=== PATIENT | female | born 1935 | race Caucasian/White ===

== ENCOUNTER → 2017-03-13 | Outpatient (CLI) | payer MEDICARE ==
--- NOTE | 2017-03-13 11:46 | BD ---
EXAMINATION TYPE: MG DEXA axial skeleton. DATE OF EXAM: 03/13/2017 COMPARISON: Prior DEXA bone scan February 09, 2015. CLINICAL HISTORY: Postmenopausal female with osteopenia per order Height: 5 FT 2 IN Weight: 178 FRAX RISK QUESTIONS: Alcohol (3 or more units per day): NO Family History (Parent hip fracture): NO Glucocorticoids (More than 3mos): NO (Ex: prednisone, prednisolone, methylprednisolone, dexamethasone, and hydrocortisone). History of Fracture in Adulthood: NO Secondary Osteoporosis: 1. Type 1 Diabetes: NO 2. Hyperthyroidism: NO 3. Menopause before 45: YES 4. Malnutrition: NO 5. Chronic liver disease: NO Rheumatoid Arthritis: NO Current Tobacco Use: NO RISK FACTORS HISTORY OF: Active: YES Postmenopausal woman: AGE 45 Lost more than 2 inches in height since high school: YES MEDICATIONS: Additional Medications: VAGINAL ESTROGEN,GEMFIBROZIL, PROPRANOLOL, OXPRENOLOL, LYRICA, PRIMIDONE, XYZ AL,LOVASTATIN, XANAX, ULTRAM, FLONASE,PROBIOTIC, VIT D, METHENAMINE Additional History: EXAM MEASUREMENTS: Bone mineral densitometry was performed using the [employer] System. Bone mineral density as measured about the Lumbar spine is: ----- L1-L4(G/cm2): 1.293 T Score Values are as follows: ----- L2: 0.4 ----- L3: 1.0 ----- L4: 2.6 ----- L1-L4: 0.9 Bone mineral density has: Increased 8.3% since study of: 2014 Bone mineral density about the R hip (g/cm2): 0.844 Bone mineral density about the L hip (g/cm2): 0.770 T Score values are as follows: -----R Neck: -1.4 -----L Neck: -1.9 -----R Total: -0.5 -----L Total: -1.1 Bone mineral density has: Decreased -2.6% since study of: 2014 IMPRESSION: Osteopenia (T Score between -2.5 and -1 as noted by T score values remains present in bilateral hips. There remains slightly increased risk of fracture and the patient may be considered for treatment. Re-Screen 2-5 years. NOTE: T-SCORE=SD OF THE YOUNG ADULT MEAN.
--- NOTE | 2017-03-14 08:23 | MM ---
Reason for exam: screening (asymptomatic). Last mammogram was performed 1 year and 1 month ago. History: Patient is postmenopausal. Stereotactic core biopsy of the left breast, 2005. Benign stereotactic core biopsy of the left breast, April 24, 2004. Core biopsy of the left breast. Excisional biopsy of the left breast. Taking tamoxifen for 4 years 5 months beginning at age 66. Physical Findings: A clinical breast exam by your physician is recommended on an annual basis and results should be correlated with mammographic findings. MG 3D Screening Mammo W/Cad Bilateral CC and MLO view(s) were taken. Prior study comparison: February 15, 2016, bilateral MG screening mammo w CAD. February 09, 2015, bilateral MG screening mammo w CAD. The breast tissue is almost entirely fat. Previous ultrasound biopsy in the left breast. No significant changes when compared with prior studies. ASSESSMENT: Benign, BI-RAD 2 RECOMMENDATION: Routine screening mammogram of both breasts in 1 year.
== END | disposition home or self-care (01) ==
LOC: RADMAMWWP 08:43
PROVIDERS: ATTEND Obstetrics & Gynecology
DX: Z12.31 Encounter for screening mammogram for malignant neoplasm of breast (principal); M85.88 Other specified disorders of bone density and structure, other site
CPT/HCPCS: 77080; 77063; G0202

== ENCOUNTER → 2017-03-19 | Outpatient (CLI) | payer MEDICARE ==
[2017-03-19 11:03] LABS: Blood Urea Nitrogen 17 mg/dL (7-17); Non-African American GFR(MDRD) >60 (>60 ml/min/1.73 sqM)
== END | disposition home or self-care (01) ==
LOC: LABWHC1 09:45
PROVIDERS: ATTEND Nurse Practitioner
DX: M51.9 Unspecified thoracic, thoracolumbar and lumbosacral intervertebral disc disorder (principal)
CPT/HCPCS: 36415; 82565; 84520

== ENCOUNTER → 2017-03-21 | Outpatient (CLI) | payer MEDICARE ==
--- NOTE | 2017-03-22 08:17 | MR ---
EXAMINATION TYPE: MR lumbar spine wo/w con DATE OF EXAM: 03/21/2017 COMPARISON: Prior MRI lumbar spine October 02, 2010 HISTORY: Degenerative disc disease (M 61.9) per order. Low back pain on and off for 4 to 5 months wit h pain going into bilateral legs per patient. TECHNIQUE: Multiplanar, multisequence images of the lumbar spine is performed without and with IV contrast, util izing 15 mL intravenous MultiHance FINDINGS: Sagittal images of the lumbar spine show vertebral body heights to remain satisfactory. Mul tilevel endplate irregularities or Schmorl nodes centered at L2-L3 and L4-L5 disc spaces are present There is persistent grade 2 anterolisthesis of L4 on L5 measured 11 mm on sagittal image 9 from poste rior vertebral body margin. Multilevel disc desiccation is redemonstrated. There is persistent advanc ed disc space narrowing L2-L3, L4-L5, and L5-S1 levels.. The conus medullaris remains low in positio n ending at inferior L2 level. No abnormal signal is seen. No significant change from prior is noted. Heterogeneous endplate changes are present to lower lumbar levels. No suspicious postcontrast enhanc ement is seen. Mild to moderate multilevel anterior spurring is noted. Axial images at the T12-L1 level shows new mild broad disc bulge mildly effacing anterior thecal sac on axial image 34, bilateral neural foramina remain patent. Mild facet degenerative changes bilateral ly are redemonstrated. Axial images at L1-L2 level redemonstrate mild facet degenerative changes bilaterally otherwise are f elt within normal limits. No significant change from prior. Axial images at the L2-L3 level show mild to moderate facet degenerative changes and ligamentum flavu m hypertrophy with some effacement the posterior lateral thecal sac. There is more moderate broad dis c bulge and posterior spurring effacing anterior thecal sac on axial image 23. Spur disc complexes ar e causing moderate right and mild left-sided neural foraminal narrowing. No significant change from p rior study is seen. Axial images at the L3-L4 level show moderate facet degenerative changes and ligament flavum hypertro phy effacing posterior lateral thecal sac on axial image 16. There is moderate to severe broad disc b ulge effacing anterior thecal sac. Significant progression from prior study is seen. There is severe left and moderate right-sided neural foraminal narrowing at this level identified on current study. E ncroachment left L3 nerve is felt present seen best on sagittal image 4. Axial images at L4-L5 level with spondylolisthesis with pseudodisc herniation. There is advanced face t arthropathy bilaterally. Spinal canal stenosis is present. There is advanced bilateral neural vazquez inal narrowing redemonstrated with encroachment on both L4 nerve suspected. Axial images at L5-S1 level show moderate facet degenerative changes bilaterally. There is prominent broad-based central disc protrusion on axial image 5. Spinal canal is minimally effaced anteriorly. T here is moderate to severe right-sided neural foraminal narrowing and moderate left-sided neural fora cathy narrowing. Encroachment on right L5 nerve is resonance sagittal image 13. Findings are similar to prior. Prominent renal pelvises without calyceal dilatation are again seen suggesting bilateral extrarenal p elvises IMPRESSION: Persistent grade 2 anterolisthesis of L4 on L5 felt stable. Multilevel degenerative stephenson es in lumbar spine are redemonstrated. There is persistent spinal canal stenosis and bilateral advanc ed neural foraminal narrowing L4-L5 level. There is new significant spinal canal stenosis L3-L4 level and encroachment on left L3 nerve. There is persistent encroachment right L5 nerve L5-S1 level. Furt her details are noted as discussed above.
== END | disposition home or self-care (01) ==
LOC: RADMRIMAIN 14:30
PROVIDERS: ATTEND Family Medicine
DX: M99.73 Connective tissue and disc stenosis of intervertebral foramina of lumbar region (principal); M48.06 Spinal stenosis, lumbar region; M43.16 Spondylolisthesis, lumbar region; M47.816 Spondylosis without myelopathy or radiculopathy, lumbar region
CPT/HCPCS: 72158; A9577

== ENCOUNTER → 2017-04-28 | Outpatient (CLI) | payer MEDICARE ==
[2017-04-25 10:04] VITALS: BMI 30.2
[2017-04-28 11:47] VITALS: BP 141/74; PULSE 61; RESP 16; TEMP 98
--- NOTE | 2017-04-28 12:15 | P.HPIM ---
History of Present Illness H&P Date: 04/28/17 This is a 81-year-old patient referred by Dr. Guevara for chronic pain in low back and tailbone area with radiation to posterior thighs. Patient has been taking medications from primary care physician including tramadol medications with some relief. Patient denies adverse drug effects from medications. Patient also denies new-onset weakness, bowel/bladder incontinence, or any other signs or symptoms of cauda equina syndrome. There are no signs of acute intoxication, and no indications of medication diversion or overuse. Patient notes that pain worsens significantly with standing and walking, and improves with rest, heat, and medication. Patient has used several types of medications for pain, including NSAIDS, OPIOIDS (Smock), TRAMADOL. Patient HAS NOT had surgery. Patient HAS had injections previously (RFA and a procedure for her tailbone which she cannot remember). Patient HAS had physical therapy recently and is doing well with it. In addition to above, 13-point review of systems is also negative for chest pain , shortness of breath, changes in vision, changes in hearing, new onset weakness , abdominal pain, diarrhea, extreme fatigue, malaise, fever, skin changes, homicidal or suicidal ideation, or bowel or bladder incontinence. Vital Signs: Reviewed in EMR Gen: WDWN, AAOx3, NAD HEENT: NCAT, EOMI, hearing grossly normal Pulm: resp unlabored Abd: soft, NT, ND Neck: supple, trachea midline ROM in flexion lumbar spine: reduced ROM in extension lumbar spine: reduced Lumbar paravertebral tenderness: + Facet loading: + bilateral SI joint tenderness: + R > L John's test: + R > L Straight leg raise: + RLE Neuro: CN II-XII grossly intact Past Medical History Past Medical History: GI Bleed, Osteoarthritis (OA) Additional Past Medical History / Comment(s): Bleeding Ulcer.,Hx of UTI's., Tremors-mostly right hand, Back pain., allergies. History of Any Multi-Drug Resistant Organisms: None Reported Past Surgical History: Cholecystectomy, Orthopedic Surgery Additional Past Surgical History / Comment(s): TUBAL LIGATION, KNEE ARHTROSCOPY. Past Anesthesia/Blood Transfusion Reactions: No Reported Reaction Additional Past Anesthesia/Blood Transfusion Reaction / Comment(s): SOMETIMES ANGELITA AFTER WARDS. Past Psychological History: Anxiety Smoking Status: Former smoker Past Alcohol Use History: Rare Additional Past Alcohol Use History / Comment(s): QUIT SMOKING 20 YRS AGO., SMOKED < 1PPD. Past Drug Use History: None Reported - Past Family History Mother Family Medical History: No Reported History Medications and Allergies Home Medications Medication Instructions Recorded Confirmed Type ALPRAZolam [Xanax] 0.5 mg PO BID 04/25/17 04/28/17 History Acetaminophen [Tylenol Arthritis] 1,300 mg PO DAILY 04/25/17 04/28/17 History Cholecalciferol [Vitamin D3] 1,000 unit PO BID 04/25/17 04/25/17 History Compound Cream (Pt To Bring) 1 applicate TOPICAL DAILY 04/25/17 History Cranberry Tablets 2 tab PO TID 04/25/17 History Estrage Vaginal Cream 1 applicate TOPICAL DIRECTED 04/25/17 History Fluticasone Nasal [place] [Flonase 1 spray EA NOSTRIL DAILY 04/25/17 04/25/17 History Nasal [place]] Gemfibrozil [Lopid] 600 mg PO BID 04/25/17 04/25/17 History Glucosamine/Chondr Cochran A Sod [Osteo 1 each PO DAILY 04/25/17 04/25/17 History Bi-Flex Caplet] L.acidoph,Paracasei, B.lactis 1 each PO DAILY 04/25/17 04/25/17 History [Probiotic] Levocetirizine Dihydrochloride 5 mg PO HS 04/25/17 04/25/17 History [Xyzal] Lovastatin [Mevacor] 20 mg PO HS 04/25/17 04/25/17 History Methenamine Hippurate [Hiprex] 1 gm PO BID 04/25/17 04/25/17 History Methocarbamol [Robaxin] 500 mg PO Q6HR PRN 04/25/17 04/25/17 History Multivitamins, Thera [Multivitamin 1 tab PO DAILY 04/25/17 04/25/17 History (formulary)] Omeprazole 40 mg PO DAILY 04/25/17 04/25/17 History Pregabalin [Lyrica] 150 mg PO DAILY@1200 04/25/17 04/25/17 History Primidone [Mysoline] 25 mg PO HS 04/25/17 04/25/17 History Propranolol HCl [Inderal LA] 120 mg PO HS 04/25/17 04/25/17 History traMADol HCl [Ultram] 50 mg PO Q6H PRN 04/25/17 04/28/17 History Allergies Allergy/AdvReac Type Severity Reaction Status Date / Time aspirin Allergy Unknown Bleeding Verified 04/28/17 11:27 Ulcer Results Comments: MRI lumbar spine dated 03/21/2017 demonstrates mild to moderate facet degenerative changes the L2-L3 level with a more moderate broad disc bulge and posterior spurring that is effacing the anterior thecal sac. At the L3-L4 level there are moderate facet degenerative changes and ligamentum flavum hypertrophy effacing the posterior lateral thecal sac with moderate to severe broad-based disc bulging with severe left and moderate right-sided neural foraminal narrowing and encroachment of the left L3 nerve root. At the L4-L5 level there is spondylolisthesis with pseudo-disc herniation and advanced facet arthropathy bilaterally. There is spinal canal stenosis at this level. There is advanced bilateral neural foraminal narrowing redemonstrated with encroachment on both L4 nerve roots. At the L5-S1 level there is moderate to severe right-sided neural foraminal narrowing and moderate left-sided neural foraminal narrowing. Assessment and Plan (1) Spondylosis of lumbar region without myelopathy or radiculopathy Status: Chronic (2) Lumbar radiculopathy Status: Chronic (3) Lumbar spinal stenosis Status: Chronic (4) Coccygodynia Status: Chronic Plan: 1. Explanation: Opioid and psychological risk scores were reviewed. Diagnoses , prognoses, and multiple treatment options including but not limited to physical therapy, interventional therapies, adjuvant medical therapies, narcotic medication therapies, and surgery were discussed with the patient and all questions were answered to the patient's satisfaction. 2. Opioid agreement: no opioids [id number] 3. Counseling: The patient was counseled extensively on BODY MASS INDEX, EXERCISE. Specifically, the patient was instructed regarding the importance of smoking cessation, weight control, and exercise in the context of both chronic pain and overall health. 4. Procedures: bilateral lumbar MBB L3-S1, and patient also to read about ganglion of impar blocks 5. Consultations: none 6. Investigations: none 7. Medications: TENS unit with supplies, Celebrex 100 mg BID 8. Disposition: f/u for procedure as scheduled PQRS measures: 1-Patient's medications are documented in the chart. 2-Tobacco use is negative 3-Patient has had a pneumococcal vaccine. 4-Advanced care planning discussed, patient unable to give. 5-Opioid contract signed with the patient. 6-Pain positive, follow-up visit or procedure scheduled 7-Patient's blood pressure measured and documented, and patient will follow up with the primary care due to hypertension. 8-Patient's weight was measured, and body mass index ABOVE the normal limits, and counseling was done. Patient instructed to follow up with PCP. 9-Patient WAS NOT identified as an unhealthy alcohol user. Time with Patient: Greater than 30
== END | disposition home or self-care (01) ==
LOC: PNWHC3 10:53
PROVIDERS: ATTEND Anesthesiology
DX: M48.06 Spinal stenosis, lumbar region (principal); M47.26 Other spondylosis with radiculopathy, lumbar region; M53.3 Sacrococcygeal disorders, not elsewhere classified; M19.90 Unspecified osteoarthritis, unspecified site; Z79.891 Long term (current) use of opiate analgesic; Z79.899 Other long term (current) drug therapy; Z88.6 Allergy status to analgesic agent
CPT/HCPCS: 99211

== ENCOUNTER → 2017-06-05 | Outpatient (CLI) | payer MEDICARE ==
[2017-06-05 14:25] VITALS: BP 133/62; PULSE 73; RESP 16; TEMP 98.8
--- NOTE | 2017-06-05 15:34 | P.PN ---
Subjective Progress Note Date: 06/05/17 This is follow-up visit for this patient with a history of severe and chronic low back pain secondary to lumbar spinal stenosis , lumbar spondylosis with facet arthropathy, coccyodynia patient currently on 1-Ultram 50 mg every 6 hours 2- Lyrica 50 mg daily 3- Robaxin 500 mg every 6 hours when necessary Patient denies any side effects of the medication, denies excessive drowsiness or sleepiness, denies suicidal ideation, and reports that the current pain medication is NOT helping To control the pain and improve activity of daily living . Patient denies any motor or sensory deficit, denies change in bowel movement or urination, patient denies any fever or night sweats and patient here for follow-up visit , she'll was scheduled to have diagnostic medial branch blocks lumbar area , because she hasn't lumbar facetogenic pain, and it was rejected because inadequate lip rescinded patient had pain radiated to the buttock and the back of the legs,!!!!!!!!!, physical examination and diagnostic studies support that the patient had facet joint problem, but the patient had more than one etiology causing her low back pain Objective - Exam Physical Examinations : 1-Constitutiona : Cooperative , not in acute distress . 2-HEENT : nech ; supple , no Lymphadenopathy , normal thyroid size . eyes : no ptosis , no icterus, no photophobia . ENT : normal of hearing , normal oropharynx , no Thrush . 3- Respiratory : Chest clear to auscultations Bilaterally , no wheezing , no Rhonchi . 4- Cardiovascular : regular rate and rhythem , S1 , S2 , no S3 , no S4. 5- Gastrointestinal : abdomen soft no tenderness , bowel sounds positive all four quadrents , no organomegally . 6- Genitourinary : Defferred . 7- neurologic : Cranial nerve II to XII intact , no focal neurological deffecit . 8-psychatric : alert , oriented X 3 , appropriate affect , intact judgment and insight . 9-Lymphatic : no Lymphadenopathy . 10- musculoskeltal : , Lumber spine = normal moter stegnth lower extremities ,thigh and legs .5/5 deep tendon reflexes : normal Knee Jerk , normal ankle Jerk . positive lumber facet Loading Test strait leg raising test positive at 30 degree , RT ,LT , Fabere test positive RT and positive LT . Sever tenderness over the coccyx area MRI of the lumbar spine= done at the current [facility]= L4 5 spondylolisthesis and advanced facet joint arthropathy bilaterally and spinal canal stenosis, L5-S1 facet joint degeneration and central disc protrusion, L3 4 facet joint degeneration, L2-3 facet joint degeneration Assessment and Plan Assessment: Assessment and plan= chronic low back pain secondary to lumbar spinal stenosis , lumbar spondylosis with lumbar facet arthropathy , coccyodynia chronic and current use of high-risk medication (opioids) Patient denies any side effects of the current pain medication and the current treatment/medication ML and the patient to do activity of daily living , Diagnoses, prognosis, treatment options, including but not limited to physical therapy, medication management, interventional therapies, and surgery, were discussed with the patient All the questions answered Patient signed the narcotic agreement, and he was orally counseled, not to overuse, not to abuse, not to Divert , not tp sell pain medication, and to take it as prescribed only, Patient was counseled not to drive or operate heavy equipment while using narcotic medication, and advised not to use alcohol or any Illicit drugs while using the narcotis, the patient's verbalized understanding that lack of compliance with any of the above instructions and will likely to cause discharge from the pain service, not to renew his narcotic prescriptions Medication managements= patient will be given prescription refills for 1- 2- 3- Interventional pain management= Refferal = Follow-up= , Plan: Assessment and plan= chronic low back pain secondary to lumbar degenerative disc disease , lumbar spondylosis with lumbar facet arthropathy , coccydynia Patient had physical examination and diagnostic study to support , that the patient had lumbar spondylosis with facet arthropathy, she should being good candidate to have diagnostic medial branch block lumbar area, but the insurance did not prove the procedure, patient complaining of severe tailbone pain/ coccydynia, she can be good candidate to have a ganglion impar block which will be done under fluoroscopy guidance, procedure risk and benefits and alternatives discussed with the patient and she agreed with proceeding
== END | disposition home or self-care (01) ==
LOC: PNWHC3 13:58
PROVIDERS: ATTEND Specialist
DX: M48.061 Spinal stenosis, lumbar region without neurogenic claudication (principal); M47.816 Spondylosis without myelopathy or radiculopathy, lumbar region; M46.86 Other specified inflammatory spondylopathies, lumbar region; M53.3 Sacrococcygeal disorders, not elsewhere classified; Z79.891 Long term (current) use of opiate analgesic
CPT/HCPCS: 99211

== ENCOUNTER 2017-06-08 18:21 | Inpatient (IN) | payer MEDICARE ==
[2017-06-08] MEDS ORDERED: SODIUM CHLORIDE 0.9% 1,000 ML IV STA (18:29)
--- NOTE | 2017-06-08 18:33 | ED ---
Weakness HPI - General Stated complaint: Poss Sepsis Time Seen by Provider: 06/08/17 18:21 Source: patient, family, EMS, RN notes reviewed Mode of arrival: EMS - History of Present Illness Initial comments: This is a 81-year-old female who was brought in for evaluation for lethargy generalized weakness not feeling well for the past 3 days she's had a cough with green-yellow phlegm she was found have a fever today. She had a 88% saturation on pulse oximetry. The initial encounter by EMS after an updraft. Raised about 94. She has a chest pain. She denies any history of COPD or emphysema but she is a former smoker. MD Complaint: generalized weakness - Related Data Home Medications Medication Instructions Recorded Confirmed ALPRAZolam [Xanax] 0.5 mg PO BID 04/25/17 06/05/17 Acetaminophen [Tylenol Arthritis] 1,300 mg PO DAILY PRN 04/25/17 06/05/17 Cholecalciferol [Vitamin D3] 1,000 unit PO BID 04/25/17 06/05/17 Compound Cream (Pt To Bring) 1 applicate TOPICAL DAILY 04/25/17 06/05/17 Cranberry Tablets 2 tab PO TID 04/25/17 06/05/17 Estrage Vaginal Cream 1 applicate TOPICAL DIRECTED 04/25/17 06/05/17 Fluticasone Nasal [place] [Flonase 1 spray EA NOSTRIL DAILY 04/25/17 06/05/17 Nasal [place]] Gemfibrozil [Lopid] 600 mg PO BID 04/25/17 06/05/17 Glucosamine/Chondr Cochran A Sod [Osteo 1 each PO DAILY 04/25/17 06/05/17 Bi-Flex Caplet] L.acidoph,Paracasei, B.lactis 1 each PO DAILY 04/25/17 06/05/17 [Probiotic] Levocetirizine Dihydrochloride 5 mg PO HS 04/25/17 06/05/17 [Xyzal] Lovastatin [Mevacor] 20 mg PO HS 04/25/17 06/05/17 Methenamine Hippurate [Hiprex] 1 gm PO BID 04/25/17 06/05/17 Methocarbamol [Robaxin] 500 mg PO Q6HR PRN 04/25/17 06/05/17 Multivitamins, Thera [Multivitamin 1 tab PO DAILY 04/25/17 06/05/17 (formulary)] Omeprazole 40 mg PO DAILY 04/25/17 06/05/17 Pregabalin [Lyrica] 150 mg PO DAILY@1200 04/25/17 06/05/17 Primidone [Mysoline] 25 mg PO HS 04/25/17 06/05/17 Propranolol HCl [Inderal LA] 120 mg PO HS 04/25/17 06/05/17 traMADol HCl [Ultram] 50 mg PO Q6H PRN 04/25/17 06/05/17 predniSONE 20 mg PO BID 05/19/17 06/05/17 Allergies Allergy/AdvReac Type Severity Reaction Status Date / Time aspirin Allergy Unknown Bleeding Verified 06/05/17 14:07 Ulcer Review of Systems ROS Statement: Those systems with pertinent positive or pertinent negative responses have been documented in the HPI. ROS Other: All systems not noted in ROS Statement are negative. Past Medical History Past Medical History: GI Bleed, Osteoarthritis (OA) Additional Past Medical History / Comment(s): hx Bleeding Ulcer.,frequent of UTI 's.,Tremors-mostly right hand, hx IBS, neuropathy kacie feet and hands, History of Any Multi-Drug Resistant Organisms: None Reported Past Surgical History: Cholecystectomy, Orthopedic Surgery, Tubal Ligation Additional Past Surgical History / Comment(s): Arthroscopy left knee, hammer toe surgery kacie feet, Past Anesthesia/Blood Transfusion Reactions: Motion Sickness Additional Past Anesthesia/Blood Transfusion Reaction / Comment(s): . Past Psychological History: Anxiety Smoking Status: Former smoker Past Alcohol Use History: Rare Additional Past Alcohol Use History / Comment(s): QUIT SMOKING 20 YRS AGO., SMOKED < 1PPD. smoked for 10 yrs Past Drug Use History: None Reported - Past Family History Mother Family Medical History: No Reported History General Exam - General Exam Comments Initial Comments: This is a well-developed well-nourished awake alert oriented 3 female General appearance: alert, lethargic Head exam: Present: atraumatic, normocephalic, normal inspection Eye exam: Present: normal appearance, PERRL, EOMI. Absent: scleral icterus, conjunctival injection, periorbital swelling ENT exam: Present: normal exam, mucous membranes moist Neck exam: Present: normal inspection. Absent: tenderness, meningismus, lymphadenopathy Respiratory exam: Present: normal lung sounds bilaterally, wheezes, rhonchi ( Right lower lobe wheezes and rhonchi), decreased breath sounds. Absent: respiratory distress, rales, stridor Cardiovascular Exam: Present: normal rhythm, tachycardia, normal heart sounds. Absent: systolic murmur, diastolic murmur, rubs, gallop, clicks GI/Abdominal exam: Present: soft, normal bowel sounds. Absent: distended, tenderness, guarding, rebound, rigid Extremities exam: Present: normal inspection, full ROM, normal capillary refill. Absent: tenderness, pedal edema, joint swelling, calf tenderness Back exam: Present: normal inspection Neurological exam: Present: alert, oriented X3, CN II-XII intact Psychiatric exam: Present: normal affect, normal mood Skin exam: Present: warm, intact, normal color, diaphoretic. Absent: rash Course Vital Signs 06/08/17 06/08/17 18:24 19:11 Temperature 102.4 F H Pulse Rate 93 87 Respiratory 18 18 Rate Blood Pressure 153/65 O2 Sat by Pulse 98 96 Oximetry EKG Findings - EKG Results: EKG: interpreted by JOY, sinus rhythm (Sinus rhythm rate 90. Interval 158 QRS 86 daily since QTC of 346/423 nonspecific inferior changes.) Medical Decision Making - Medical Decision Making I did discuss findings with the patient she will be admitted case was discussed with Dr. Chi - Lab Data Result diagrams: 06/08/17 18:46 06/08/17 18:46 Lab Results 06/08/17 06/08/17 06/08/17 Range/Units 18:46 18:46 18:46 WBC 12.7 H (3.8-10.6) k/uL RBC 3.24 L (3.80-5.40) m/uL Hgb 10.4 L (11.4-16.0) gm/dL Hct 31.0 L (34.0-46.0) % MCV 95.6 (80.0-100.0) fL MCH 32.0 (25.0-35.0) pg MCHC 33.4 (31.0-37.0) g/dL RDW 13.1 (11.5-15.5) % Plt Count 173 (150-450) k/uL Neutrophils % 84 % Lymphocytes % 7 % Monocytes % 7 % Eosinophils % 0 % Basophils % 0 % Neutrophils # 10.7 H (1.3-7.7) k/uL Lymphocytes # 0.9 L (1.0-4.8) k/uL Monocytes # 1.0 (0-1.0) k/uL Eosinophils # 0.1 (0-0.7) k/uL Basophils # 0.0 (0-0.2) k/uL Sodium (137-145) mmol/L Potassium (3.5-5.1) mmol/L Chloride (98-107) mmol/L Carbon Dioxide (22-30) mmol/L Anion Gap mmol/L BUN (7-17) mg/dL Creatinine (0.52-1.04) mg/dL Est GFR (MDRD) Af Amer (>60 ml/min/1.73 sqM) Est GFR (MDRD) Non-Af (>60 ml/min/1.73 sqM) Glucose (74-99) mg/dL Plasma Lactic Acid Jose (0.7-2.0) mmol/L Calcium (8.4-10.2) mg/dL Magnesium (1.6-2.3) mg/dL Total Bilirubin (0.2-1.3) mg/dL AST (14-36) U/L ALT (9-52) U/L Alkaline Phosphatase (38-126) U/L Total Creatine Kinase 555 H (30-135) U/L CK-MB (CK-2) 4.2 H* (0.0-2.4) ng/mL CK-MB (CK-2) Rel Index 0.8 NT-Pro-B Natriuret Pep 348 pg/mL Total Protein (6.3-8.2) g/dL Albumin (3.5-5.0) g/dL 06/08/17 06/08/17 Range/Units 18:46 18:46 WBC (3.8-10.6) k/uL RBC (3.80-5.40) m/uL Hgb (11.4-16.0) gm/dL Hct (34.0-46.0) % MCV (80.0-100.0) fL MCH (25.0-35.0) pg MCHC (31.0-37.0) g/dL RDW (11.5-15.5) % Plt Count (150-450) k/uL Neutrophils % % Lymphocytes % % Monocytes % % Eosinophils % % Basophils % % Neutrophils # (1.3-7.7) k/uL Lymphocytes # (1.0-4.8) k/uL Monocytes # (0-1.0) k/uL Eosinophils # (0-0.7) k/uL Basophils # (0-0.2) k/uL Sodium 136 L (137-145) mmol/L Potassium 4.0 (3.5-5.1) mmol/L Chloride 104 (98-107) mmol/L Carbon Dioxide 22 (22-30) mmol/L Anion Gap 10 mmol/L BUN 26 H (7-17) mg/dL Creatinine 1.00 (0.52-1.04) mg/dL Est GFR (MDRD) Af Amer >60 (>60 ml/min/1.73 sqM) Est GFR (MDRD) Non-Af 53 (>60 ml/min/1.73 sqM) Glucose 118 H (74-99) mg/dL Plasma Lactic Acid Jose 0.7 (0.7-2.0) mmol/L Calcium 7.9 L (8.4-10.2) mg/dL Magnesium 1.6 (1.6-2.3) mg/dL Total Bilirubin 0.9 (0.2-1.3) mg/dL AST 41 H (14-36) U/L ALT 47 (9-52) U/L Alkaline Phosphatase 79 (38-126) U/L Total Creatine Kinase (30-135) U/L CK-MB (CK-2) (0.0-2.4) ng/mL CK-MB (CK-2) Rel Index NT-Pro-B Natriuret Pep pg/mL Total Protein 5.8 L (6.3-8.2) g/dL Albumin 3.2 L (3.5-5.0) g/dL - Radiology Data Radiology results: report reviewed (I did review the x-rays and report or is evidence of bilateral lower lobe air space disease), image reviewed Disposition Clinical Impression: Pneumonia, Febrile illness, acute, Hypoxemia, Bronchospasm, acute Disposition: ADMITTED IP TO THIS [facility] Condition: Stable Referrals: Mesha Kumar MD [Primary Care Provider] - 1-2 days
[2017-06-08 19:00] LABS: Basophils % (A) 0 %; CHCM 33.6; Eosinophils # (A) 0.1 k/uL (0-0.7); Eosinophils % (A) 0 %; HDW 2.72; HGB 10.4 gm/dL (11.4-16.0); Luc # (Auto) 0.09; Luc % (Auto) 1; Lymphocytes # (A) 0.9 k/uL (1.0-4.8); Lymphocytes % (A) 7 %; MCHC 33.4 g/dL (31.0-37.0); MCV 95.6 fL (80.0-100.0); Mean Platelet Volume 8.3; Monocytes % (A) 7 %; Neutrophils # (A) 10.7 k/uL (1.3-7.7); Neutrophils % (A) 84 %; RBC 3.24 m/uL (3.80-5.40); RDW 13.1 % (11.5-15.5); WBC 12.7 k/uL (3.8-10.6)
[2017-06-08 19:06] LABS: ALT 47 U/L (9-52); AST 41 U/L (14-36); Alkaline Phosphatase 79 U/L (38-126); Anion Gap 10 mmol/L; Blood Urea Nitrogen 26 mg/dL (7-17); Calcium 7.9 mg/dL (8.4-10.2); Carbon Dioxide 22 mmol/L (22-30); Chloride 104 mmol/L (98-107); Glucose 118 mg/dL (74-99); Magnesium 1.6 mg/dL (1.6-2.3); Non-African American GFR(MDRD) 53 (>60 ml/min/1.73 sqM); Sodium 136 mmol/L (137-145); Total Bilirubin 0.9 mg/dL (0.2-1.3); Total Protein 5.8 g/dL (6.3-8.2)
[2017-06-08] MEDS ORDERED: ACETAMINOPHEN TAB 500 MG TAB PO STA (19:13)
[2017-06-08 19:20] LABS: Creatine Kinase MB 4.2 ng/mL (0.0-2.4)
--- NOTE | 2017-06-08 19:29 | XR ---
EXAMINATION TYPE: XR chest 2V DATE OF EXAM: 06/08/2017 COMPARISON: NONE HISTORY: Cough TECHNIQUE: Frontal and lateral views of the chest are obtained. FINDINGS: There is airspace opacity in the retrocardiac space which is felt to be atelectasis or pne umonia. There is definitely bibasilar atelectasis. No pneumothorax pleural effusion is identified. Th e cardiac silhouette is enlarged. Calcifications are identified in the aortic arch. IMPRESSION: Bibasilar atelectasis with airspace opacity at the left lung base felt to be a pneumonia .
[2017-06-08] MEDS ORDERED: PNEUMONIA PROTOCOL UTILIZED 1 EACH MISC PO PRN (19:48)
[2017-06-08] MEDS ORDERED: traMADol 50 MG TAB PO PRN (19:50)
[2017-06-08] MEDS ORDERED: METHOCARBAMOL 500 MG TAB PO PRN (19:50)
[2017-06-08] MEDS ORDERED: ACETAMINOPHEN TAB 500 MG TAB PO PRN (19:50)
[2017-06-08] MEDS ORDERED: methylPREDNISolone SOD SUCCI 125 MG/2 ML VIAL IV STA (19:54)
[2017-06-08] MEDS ORDERED: AZITHROMYCIN 500 MG in SODIUM CHLORIDE 0.9% 250 ML IVPB STA (19:54)
[2017-06-08] MEDS ORDERED: IPRATROPIUM-ALBUTEROL 3 ML NEB INHALATION SCH (20:00)
[2017-06-08] MEDS: SODIUM CHLORIDE 0.9% 1,000 ML IV SCH (20:29)
[2017-06-08] MEDS ORDERED: PRIMIDONE 25 MG TAB PO SCH (21:00)
[2017-06-08] MEDS: GEMFIBROZIL 600 MG TAB PO SCH (21:57)
[2017-06-08] MEDS: ATORVASTATIN 10 MG TAB PO SCH (21:57)
[2017-06-08] MEDS: LORATADINE 10 MG TAB PO SCH (21:58)
[2017-06-08] MEDS: PROPRANOLOL LA 60 MG CAP.SA.24H PO SCH (21:59)
[2017-06-08] MEDS: ALPRAZolam 0.5 MG TAB PO SCH (22:02)
[2017-06-08] MEDS: PRIMIDONE 50 MG TAB PO SCH (22:03)
[2017-06-08] MEDS: NON-FORMULARY DRUG (Methenamine Hippurate [Hiprex] 1 GM) PO SCH (22:05)
[2017-06-08] MEDS ORDERED: IPRATROPIUM-ALBUTEROL 3 ML NEB INHALATION PRN (22:17)
[2017-06-08 22:48] LABS: Appearance,Urine Cloudy (Clear); Bacteria,Urine Few /hpf; Bilirubin,Urine Negative (Negative); Glucose,Urine (UA) Negative (Negative); Ketones,Urine 1+ (Negative); Leukocyte Esterase,Urine Large (Negative); Mucus,Urine Rare /hpf; Nitrite,Urine Positive (Negative); PH, Urine 5.5 (5.0-8.0); Particle Count 4175; Protein,Urine 1+ (Negative); RBC,Urine 1 /hpf (0-5); Specific Gravity,Urine 1.009 (1.001-1.035); Squamous Epithelial Cell,Urine <1 /hpf (0-4); UA Billing (MACRO vs. MICRO) MICRO; Urobilinogen,Urine <2.0 mg/dL (<2.0); WBC,Urine 107 /hpf (0-5)
[2017-06-08] MEDS: methylPREDNISolone SOD SUCCI 125 MG/2 ML VIAL IV SCH (23:37)
[2017-06-09] MEDS: methylPREDNISolone SOD SUCCI 125 MG/2 ML VIAL IV SCH (05:51)
--- NOTE | 2017-06-09 06:51 | XR ---
EXAMINATION TYPE: XR chest 2V DATE OF EXAM: 06/09/2017 COMPARISON: 06/08/2017 HISTORY: History of pneumonia TECHNIQUE: Frontal and lateral views of the chest are obtained. FINDINGS: Bibasilar airspace disease is again demonstrated predominating within the left lower lobe and lingula. This appears linear in configuration and represents bibasilar atelectasis and/or pneumon ia. Remainder the lungs are clear. Biapical pleural thickening is noted. Cardiomediastinal silhouette is within normal limits. Cholecystectomy clips are noted within the right upper quadrant. IMPRESSION: Bibasilar atelectasis with persistent left basilar/lingular opacity that may represent s uperimposed pneumonia.
[2017-06-09] MEDS: IPRATROPIUM-ALBUTEROL 3 ML NEB INHALATION SCH ×4 (07:35→20:01)
[2017-06-09] MEDS: ALPRAZolam 0.5 MG TAB PO SCH ×2 (07:54→20:09)
[2017-06-09] MEDS: GEMFIBROZIL 600 MG TAB PO SCH ×2 (07:56→20:09)
[2017-06-09] MEDS: FLUTICASONE 50MCG/SPRAY NASAL 16GM EA NOSTRIL SCH (07:56)
[2017-06-09] MEDS: PANTOPRAZOLE 40 MG TABLET PO SCH (07:57)
[2017-06-09] MEDS: AZITHROMYCIN 500 MG TAB PO SCH (07:57)
[2017-06-09] MEDS: NON-FORMULARY DRUG (Methenamine Hippurate [Hiprex] 1 GM) PO SCH (08:05)
[2017-06-09] MEDS ORDERED: CHONDR SU A SOD PO SCH (09:00)
[2017-06-09] MEDS ORDERED: NON-FORMULARY DRUG (L.Acidoph,Paracasei, B.Lactis [Probiotic] 1 EACH) PO SCH (09:00)
[2017-06-09] MEDS ORDERED: GLUCOSAMINE PO SCH (09:00)
[2017-06-09] MEDS: METHENAMINE HIPPURATE 1 GM PO SCH ×2 (11:00→20:06)
[2017-06-09] MEDS ORDERED: ONDANSETRON 4 MG/2 ML VIAL IVP PRN (11:36)
[2017-06-09] MEDS ORDERED: ACETAMINOPHEN TAB 325 MG TAB PO PRN (11:36)
--- NOTE | 2017-06-09 11:39 | P.HPIM ---
History of Present Illness H&P Date: 06/09/17 Chief Complaint: Generalized weakness This is a 81-year-old female with past medical history noted below who presented to the hospital with generalized weakness and not feeling well. Patient said that her symptoms started few days ago and is being getting progressively worse. Yesterday she was noted to be more lethargic. Patient reported worsening shortness of breath over the past several days. She said that she was having cough that is generally nonproductive. Yesterday she noted greenish phlegm with her cough. She presented to the emergency room for further evaluation and was found to have a fever of 102.4. She was evaluated and urinalysis was positive in the emergency room. She also had a chest x-ray showing bilateral atelectasis with suspected right lower lobe pneumonia. Patient was started on antibiotic and was admitted to the hospital for further evaluation. She is feeling a lot better today. Her shortness of breath has improved. Review of Systems Review of system: 14 points review of systems were obtained and were negative except to what were mentioned in the HPI. Past Medical History Past Medical History: GI Bleed, Osteoarthritis (OA) Additional Past Medical History / Comment(s): hx Bleeding Ulcer.,frequent of UTI 's.,Tremors-mostly right hand, hx IBS, neuropathy kacie feet and hands, History of Any Multi-Drug Resistant Organisms: None Reported Past Surgical History: Cholecystectomy, Orthopedic Surgery, Tubal Ligation Additional Past Surgical History / Comment(s): Arthroscopy left knee, hammer toe surgery kacie feet, Past Anesthesia/Blood Transfusion Reactions: Motion Sickness Additional Past Anesthesia/Blood Transfusion Reaction / Comment(s): . Past Psychological History: Anxiety Smoking Status: Never smoker Past Alcohol Use History: Rare Additional Past Alcohol Use History / Comment(s): QUIT SMOKING 20 YRS AGO., SMOKED < 1PPD. smoked for 10 yrs Past Drug Use History: None Reported - Past Family History Mother Family Medical History: No Reported History Medications and Allergies Home Medications Medication Instructions Recorded Confirmed Type ALPRAZolam [Xanax] 0.5 mg PO BID 04/25/17 06/08/17 History Cholecalciferol [Vitamin D3] 1,000 unit PO BID 04/25/17 06/08/17 History Fluticasone Nasal [place] [Flonase 1 spray EA NOSTRIL DAILY 04/25/17 06/08/17 History Nasal [place]] Gemfibrozil [Lopid] 600 mg PO BID 04/25/17 06/08/17 History Glucosamine/Chondr Cochran A Sod [Osteo 1 tab PO DAILY 04/25/17 06/08/17 History Bi-Flex Caplet] L.acidoph,Paracasei, B.lactis 1 cap PO BID 04/25/17 06/08/17 History [Probiotic] Levocetirizine Dihydrochloride 5 mg PO HS 04/25/17 06/08/17 History [Xyzal] Lovastatin [Mevacor] 20 mg PO HS 04/25/17 06/08/17 History Methenamine Hippurate [Hiprex] 1 gm PO BID 04/25/17 06/08/17 History Methocarbamol [Robaxin] 500 mg PO Q6HR PRN 04/25/17 06/08/17 History Multivitamins, Thera [Multivitamin 1 tab PO DAILY 04/25/17 06/08/17 History (formulary)] Omeprazole 40 mg PO DAILY 04/25/17 06/08/17 History Pregabalin [Lyrica] 150 mg PO BID 04/25/17 06/08/17 History Primidone [Mysoline] 25 mg PO HS 04/25/17 06/08/17 History Propranolol HCl [Inderal LA] 120 mg PO HS 04/25/17 06/08/17 History traMADol HCl [Ultram] 50 mg PO Q6H PRN 04/25/17 06/08/17 History predniSONE 20 mg PO BID 05/19/17 06/08/17 History Cranberry Fruit Extract [Cranberry] 400 mg PO TID 06/08/17 06/08/17 History Estradiol [Estrace Cream 0.01%] 1 applic VAGINAL Q7D 06/08/17 06/08/17 History Ibuprofen [Motrin] 600 mg PO Q6HR PRN 06/08/17 06/08/17 History traMADol HCL [traMADol HCL ER] 300 mg PO DAILY PRN 06/08/17 06/08/17 History Allergies Allergy/AdvReac Type Severity Reaction Status Date / Time aspirin AdvReac Unknown Bleeding Verified 06/08/17 19:57 Ulcer Physical Exam Vitals: Vital Signs Temp Pulse Pulse Resp BP BP BP 06/09/17 08:00 72 20 06/09/17 07:53 72 06/09/17 07:43 72 06/09/17 07:00 97.6 F 72 20 134/63 06/09/17 03:50 97.6 F 06/09/17 02:13 96.7 F L 06/08/17 23:00 98.1 F 65 16 124/72 06/08/17 21:21 97.8 F 81 16 125/60 06/08/17 20:37 98.8 F 87 18 139/59 06/08/17 19:11 87 18 06/08/17 18:24 102.4 F H 93 18 153/65 Pulse Ox 06/09/17 08:00 06/09/17 07:53 06/09/17 07:43 06/09/17 07:00 94 L 06/09/17 03:50 06/09/17 02:13 06/08/17 23:00 93 L 06/08/17 21:21 94 L 06/08/17 20:37 97 06/08/17 19:11 96 06/08/17 18:24 98 Intake and Output 06/08/17 06/09/17 06/09/17 22:59 06:59 14:59 Other: Voiding Method Toilet Toilet # Voids 2 Weight 74.843 kg General: The patient is awake and alert, in no distress Eye: there is normal conjunctiva bilaterally. Neck: The neck is supple, there is no JVD. Cardiovascular: Normal S1-S2, no S3-S4, no murmurs. Respiratory: Lungs clear to auscultation bilaterally Gastrointestinal: Abdomen is soft, nontender Musculoskeletal: There is no pedal edema. Neurological:. Speech is normal. Skin: Skin is warm and dry Results CBC & Chem 7: 06/08/17 18:46 06/08/17 18:46 Labs: Abnormal Lab Results - Last 24 Hours (Table) 06/08/17 06/08/17 06/08/17 Range/Units 18:46 18:46 18:46 WBC 12.7 H (3.8-10.6) k/uL RBC 3.24 L (3.80-5.40) m/uL Hgb 10.4 L (11.4-16.0) gm/dL Hct 31.0 L (34.0-46.0) % Neutrophils # 10.7 H (1.3-7.7) k/uL Lymphocytes # 0.9 L (1.0-4.8) k/uL Sodium 136 L (137-145) mmol/L BUN 26 H (7-17) mg/dL Glucose 118 H (74-99) mg/dL Calcium 7.9 L (8.4-10.2) mg/dL AST 41 H (14-36) U/L Total Creatine Kinase 555 H (30-135) U/L CK-MB (CK-2) 4.2 H* (0.0-2.4) ng/mL Total Protein 5.8 L (6.3-8.2) g/dL Albumin 3.2 L (3.5-5.0) g/dL Urine Appearance (Clear) Urine Protein (Negative) Urine Ketones (Negative) Urine Blood (Negative) Urine Nitrite (Negative) Ur Leukocyte Esterase (Negative) Urine WBC (0-5) /hpf Urine Bacteria (None) /hpf Urine Mucus (None) /hpf 06/08/17 Range/Units 22:35 WBC (3.8-10.6) k/uL RBC (3.80-5.40) m/uL Hgb (11.4-16.0) gm/dL Hct (34.0-46.0) % Neutrophils # (1.3-7.7) k/uL Lymphocytes # (1.0-4.8) k/uL Sodium (137-145) mmol/L BUN (7-17) mg/dL Glucose (74-99) mg/dL Calcium (8.4-10.2) mg/dL AST (14-36) U/L Total Creatine Kinase (30-135) U/L CK-MB (CK-2) (0.0-2.4) ng/mL Total Protein (6.3-8.2) g/dL Albumin (3.5-5.0) g/dL Urine Appearance Cloudy H (Clear) Urine Protein 1+ H (Negative) Urine Ketones 1+ H (Negative) Urine Blood Small H (Negative) Urine Nitrite Positive H (Negative) Ur Leukocyte Esterase Large H (Negative) Urine WBC 107 H (0-5) /hpf Urine Bacteria Few H (None) /hpf Urine Mucus Rare H (None) /hpf Thrombosis Risk Factor Assmnt - Choose All That Apply Any of the Below Risk Factors Present?: No Each Risk Factor Represents 3 Points: Age 75 years or older Thrombosis Risk Factor Assessment Total Risk Factor Score: 3 Thrombosis Risk Factor Assessment Level: Moderate Risk Assessment and Plan Plan: 1. Uncomplicated urinary tract infection. I would obtain urine culture. 2. Suspected right lower lobe pneumonia. Sputum culture ordered. On broad- spectrum antibiotic. Pulmonology consulted. 3. Sepsis with septic shock. Probably attributed to #1 and 2. Blood culture pending. We will continue antibiotic. Patient is getting IV fluid hydration. 4. Essential hypertension: Blood pressure well-controlled 5. DVT prophylaxis with subcu heparin Today, I reviewed medication list and lab work results. Continue current regimen. Patient and her updated about her overall condition.
[2017-06-09] MEDS: MULTIVITAMINS, THERA 1 EACH TAB PO SCH (12:07)
[2017-06-09] MEDS: PREGABALIN 75 MG CAP PO SCH (12:09)
--- NOTE | 2017-06-09 13:42 | P.CNPUL ---
History of Present Illness Consult date: 06/09/17 Reason for consult: cough, pneumonia, abnormal CXR/CT, other Chief complaint: Urinary tract infection/pneumonia History of present illness: Consult dated 06/09/2017 81-year-old female who was seen in the emergency room for possible infection. She apparently came in complaining of lethargy generalized weakness and just not feeling well for about 3 days prior to admission. She did have a bit of a cough. Somewhat productive of phlegm. Not a lot. Not really impressive respiratory complaints. Also a slight temperature elevation and slight reduction and pulse oximetry. The patient apparently was seen in the emergency room and chest x-ray apparently was read out as showing some bibasilar atelectasis or possible pneumonia in the left lung. The x-ray findings are very non-impressive. Even more impressive than that was the fact that her urine was consistent with a bladder infection and may be the actual cause of her infection/sepsis. The patient apparently was recently told by urology that she did not have an infection for the first time in 6 months. She does have vague urinary complaints including some dysuria and frequency. Her medical history is mostly positive for GI bleed osteoarthritis frequent bladder infections tremors neuropathy lower extremity edema internal bowel syndrome and a bleeding ulcer. Surgical history includes orthopedic procedures as well as a tubal ligation. Medications are reviewed. Review of Systems A 12 point review of system is not really impressive but positive for some minimal cough and minimal phlegm production. The patient is producing a small amount of phlegm. Also some vague urinary complaints including some dysuria and frequency. Past Medical History Past Medical History: GI Bleed, Osteoarthritis (OA) Additional Past Medical History / Comment(s): hx Bleeding Ulcer.,frequent of UTI 's.,Tremors-mostly right hand, hx IBS, neuropathy kacie feet and hands, History of Any Multi-Drug Resistant Organisms: None Reported Past Surgical History: Cholecystectomy, Orthopedic Surgery, Tubal Ligation Additional Past Surgical History / Comment(s): Arthroscopy left knee, hammer toe surgery kacie feet, Past Anesthesia/Blood Transfusion Reactions: Motion Sickness Additional Past Anesthesia/Blood Transfusion Reaction / Comment(s): . Past Psychological History: Anxiety Smoking Status: Never smoker Past Alcohol Use History: Rare Additional Past Alcohol Use History / Comment(s): QUIT SMOKING 20 YRS AGO., SMOKED < 1PPD. smoked for 10 yrs Past Drug Use History: None Reported - Past Family History Mother Family Medical History: No Reported History Medications and Allergies Home Medications Medication Instructions Recorded Confirmed Type ALPRAZolam [Xanax] 0.5 mg PO BID 04/25/17 06/08/17 History Cholecalciferol [Vitamin D3] 1,000 unit PO BID 04/25/17 06/08/17 History Fluticasone Nasal [place] [Flonase 1 spray EA NOSTRIL DAILY 04/25/17 06/08/17 History Nasal [place]] Gemfibrozil [Lopid] 600 mg PO BID 04/25/17 06/08/17 History Glucosamine/Chondr Cochran A Sod [Osteo 1 tab PO DAILY 04/25/17 06/08/17 History Bi-Flex Caplet] L.acidoph,Paracasei, B.lactis 1 cap PO BID 04/25/17 06/08/17 History [Probiotic] Levocetirizine Dihydrochloride 5 mg PO HS 04/25/17 06/08/17 History [Xyzal] Lovastatin [Mevacor] 20 mg PO HS 04/25/17 06/08/17 History Methenamine Hippurate [Hiprex] 1 gm PO BID 04/25/17 06/08/17 History Methocarbamol [Robaxin] 500 mg PO Q6HR PRN 04/25/17 06/08/17 History Multivitamins, Thera [Multivitamin 1 tab PO DAILY 04/25/17 06/08/17 History (formulary)] Omeprazole 40 mg PO DAILY 04/25/17 06/08/17 History Pregabalin [Lyrica] 150 mg PO BID 04/25/17 06/08/17 History Primidone [Mysoline] 25 mg PO HS 04/25/17 06/08/17 History Propranolol HCl [Inderal LA] 120 mg PO HS 04/25/17 06/08/17 History traMADol HCl [Ultram] 50 mg PO Q6H PRN 04/25/17 06/08/17 History predniSONE 20 mg PO BID 05/19/17 06/08/17 History Cranberry Fruit Extract [Cranberry] 400 mg PO TID 06/08/17 06/08/17 History Estradiol [Estrace Cream 0.01%] 1 applic VAGINAL Q7D 06/08/17 06/08/17 History Ibuprofen [Motrin] 600 mg PO Q6HR PRN 06/08/17 06/08/17 History traMADol HCL [traMADol HCL ER] 300 mg PO DAILY PRN 06/08/17 06/08/17 History Allergies Allergy/AdvReac Type Severity Reaction Status Date / Time aspirin AdvReac Unknown Bleeding Verified 06/08/17 19:57 Ulcer Physical Exam Osteopathic Statement: *. No significant issues noted on an osteopathic structural exam other than those noted in the History and Physical/Consult. Vitals: Vital Signs Temp Pulse Pulse Resp BP BP BP 06/09/17 12:16 68 06/09/17 12:07 68 06/09/17 08:00 72 20 06/09/17 07:53 72 06/09/17 07:43 72 06/09/17 07:00 97.6 F 72 20 134/63 06/09/17 03:50 97.6 F 06/09/17 02:13 96.7 F L 06/08/17 23:00 98.1 F 65 16 124/72 06/08/17 21:21 97.8 F 81 16 125/60 06/08/17 20:37 98.8 F 87 18 139/59 06/08/17 19:11 87 18 06/08/17 18:24 102.4 F H 93 18 153/65 Pulse Ox 06/09/17 12:16 06/09/17 12:07 06/09/17 08:00 06/09/17 07:53 06/09/17 07:43 06/09/17 07:00 94 L 06/09/17 03:50 06/09/17 02:13 06/08/17 23:00 93 L 06/08/17 21:21 94 L 06/08/17 20:37 97 06/08/17 19:11 96 06/08/17 18:24 98 Intake and Output 06/08/17 06/09/17 06/09/17 22:59 06:59 14:59 Other: Voiding Method Toilet Toilet # Voids 2 2 Weight 74.843 kg No acute distress, oriented 3. Sitting at the bedside with nasal O2 in place. Does not appear to be having any respiratory distress whatsoever. HEENT examination is grossly unremarkable. Mixed membranes are moist. Neck supple. Full range of motion. No adenopathy. No neck vein distention. Cardiovascular examination reveals regular rhythm rate. S1-S2 normal. Lungs reveal few scattered rhonchi. No wheezes or crackles. Abdomen soft bowel sounds are heard. Extremities are intact. No cyanosis clubbing or edema. Skin without rash. Neurologic examination is nonfocal. Results - Laboratory Findings CBC and BMP: 06/08/17 18:46 06/08/17 18:46 Abnormal lab findings: Abnormal Labs 06/08/17 06/08/17 06/08/17 18:46 18:46 18:46 WBC 12.7 H RBC 3.24 L Hgb 10.4 L Hct 31.0 L Neutrophils # 10.7 H Lymphocytes # 0.9 L Sodium 136 L BUN 26 H Glucose 118 H Calcium 7.9 L AST 41 H Total Creatine Kinase 555 H CK-MB (CK-2) 4.2 H* Total Protein 5.8 L Albumin 3.2 L Urine Appearance Urine Protein Urine Ketones Urine Blood Urine Nitrite Ur Leukocyte Esterase Urine WBC Urine Bacteria Urine Mucus 06/08/17 22:35 WBC RBC Hgb Hct Neutrophils # Lymphocytes # Sodium BUN Glucose Calcium AST Total Creatine Kinase CK-MB (CK-2) Total Protein Albumin Urine Appearance Cloudy H Urine Protein 1+ H Urine Ketones 1+ H Urine Blood Small H Urine Nitrite Positive H Ur Leukocyte Esterase Large H Urine WBC 107 H Urine Bacteria Few H Urine Mucus Rare H - Diagnostic Findings Chest x-ray: image reviewed (X-rays labs and medications are all reviewed.) Assessment and Plan (1) Urinary tract infection Current Visit: Yes Status: Acute Code(s): N39.0 - URINARY TRACT INFECTION, SITE NOT SPECIFIED SNOMED Code(s): 92712207 (2) Sepsis Current Visit: Yes Status: Acute Code(s): A41.9 - SEPSIS, UNSPECIFIED ORGANISM SNOMED Code(s): 35812859 (3) Pneumonia Current Visit: Yes Status: Acute Code(s): J18.9 - PNEUMONIA, UNSPECIFIED ORGANISM SNOMED Code(s): 581602287 Plan: Plan dated 06/09/2017 The patient's overall pattern in my opinion is most consistent with a bladder infection causing some mild sepsis. I don't suspect that she has an overwhelming pneumonia and if she does have pneumonia is relatively small. More likely is a mild purulent tracheobronchitis. Anyway, we'll review the labs x-rays a medications. We'll make some recommendations in that regard. Additional recommendations and suggestions are forthcoming. We'll continue to follow. Would think that she would probably not been hospital for a long period of time. Time with Patient: Greater than 30
[2017-06-09] MEDS ORDERED: methylPREDNISolone SOD SUCCI 40 MG/ML 1 ML VIAL IV SCH (16:00)
[2017-06-09] MEDS: HEPARIN SODIUM,PORCINE 5,000 UNIT/ML 1 ML VIAL SQ SCH (20:08)
[2017-06-09] MEDS: ATORVASTATIN 10 MG TAB PO SCH (20:09)
[2017-06-09] MEDS: LORATADINE 10 MG TAB PO SCH (20:09)
[2017-06-09] MEDS: PRIMIDONE 50 MG TAB PO SCH (20:10)
[2017-06-09] MEDS: PROPRANOLOL LA 60 MG CAP.SA.24H PO SCH (20:10)
[2017-06-09] MEDS: SODIUM CHLORIDE 0.9% 1,000 ML IV SCH (23:39)
[2017-06-10] MEDS: guaiFENesin-Coden 100-10MG/5ML 10 ML CUP PO PRN ×4 (00:51→20:34)
[2017-06-10] MEDS: IPRATROPIUM-ALBUTEROL 3 ML NEB INHALATION SCH ×4 (07:18→19:35)
--- NOTE | 2017-06-10 07:42 | P.GSCN ---
History of Present Illness Consult date: 06/09/17 History of present illness: 81 yo admitted for possible pneumonia or uti. Her urien is c/w a uti She has a history of several utis with a negative workup Pulmonary medicine has seen the patient and feel that she has a uti.She has been on methenamine as a suppressive medication for the uti S she did have a fever that has subsided. She is feeling better. She did not have any other symptoms associated with the infection. Review of Systems - Constitutional Reports as per HPI, Reports chills - Respiratory Reports cough, Reports dyspnea - Genitourinary Genitourinary: Reports as per HPI Past Medical History Past Medical History: GI Bleed, Osteoarthritis (OA) Additional Past Medical History / Comment(s): hx Bleeding Ulcer.,frequent of UTI 's.,Tremors-mostly right hand, hx IBS, neuropathy kacie feet and hands, History of Any Multi-Drug Resistant Organisms: None Reported Past Surgical History: Cholecystectomy, Orthopedic Surgery, Tubal Ligation Additional Past Surgical History / Comment(s): Arthroscopy left knee, hammer toe surgery kacie feet, Past Anesthesia/Blood Transfusion Reactions: Motion Sickness Additional Past Anesthesia/Blood Transfusion Reaction / Comm: . Past Psychological History: Anxiety Smoking Status: Never smoker Past Alcohol Use History: Rare Additional Past Alcohol Use History / Comment(s): QUIT SMOKING 20 YRS AGO., SMOKED < 1PPD. smoked for 10 yrs Past Drug Use History: None Reported - Past Family History Mother Family Medical History: No Reported History Medications and Allergies Home Medications Medication Instructions Recorded Confirmed Type ALPRAZolam [Xanax] 0.5 mg PO BID 04/25/17 06/08/17 History Cholecalciferol [Vitamin D3] 1,000 unit PO BID 04/25/17 06/08/17 History Fluticasone Nasal [place] [Flonase 1 spray EA NOSTRIL DAILY 04/25/17 06/08/17 History Nasal [place]] Gemfibrozil [Lopid] 600 mg PO BID 04/25/17 06/08/17 History Glucosamine/Chondr Cochran A Sod [Osteo 1 tab PO DAILY 04/25/17 06/08/17 History Bi-Flex Caplet] L.acidoph,Paracasei, B.lactis 1 cap PO BID 04/25/17 06/08/17 History [Probiotic] Levocetirizine Dihydrochloride 5 mg PO HS 04/25/17 06/08/17 History [Xyzal] Lovastatin [Mevacor] 20 mg PO HS 04/25/17 06/08/17 History Methenamine Hippurate [Hiprex] 1 gm PO BID 04/25/17 06/08/17 History Methocarbamol [Robaxin] 500 mg PO Q6HR PRN 04/25/17 06/08/17 History Multivitamins, Thera [Multivitamin 1 tab PO DAILY 04/25/17 06/08/17 History (formulary)] Omeprazole 40 mg PO DAILY 04/25/17 06/08/17 History Pregabalin [Lyrica] 150 mg PO BID 04/25/17 06/08/17 History Primidone [Mysoline] 25 mg PO HS 04/25/17 06/08/17 History Propranolol HCl [Inderal LA] 120 mg PO HS 04/25/17 06/08/17 History traMADol HCl [Ultram] 50 mg PO Q6H PRN 04/25/17 06/08/17 History predniSONE 20 mg PO BID 05/19/17 06/08/17 History Cranberry Fruit Extract [Cranberry] 400 mg PO TID 06/08/17 06/08/17 History Estradiol [Estrace Cream 0.01%] 1 applic VAGINAL Q7D 06/08/17 06/08/17 History Ibuprofen [Motrin] 600 mg PO Q6HR PRN 06/08/17 06/08/17 History traMADol HCL [traMADol HCL ER] 300 mg PO DAILY PRN 06/08/17 06/08/17 History Allergies Allergy/AdvReac Type Severity Reaction Status Date / Time aspirin AdvReac Unknown Bleeding Verified 06/08/17 19:57 Ulcer Surgical - Exam Vital Signs Temp Pulse Resp BP Pulse Ox 102.4 F H 93 18 153/65 98 06/08/17 18:24 06/08/17 18:24 06/08/17 18:24 06/08/17 18:24 06/08/17 18:24 - General well developed, well nourished, no distress - Eyes PERRL - ENT no hearing loss - Neck trachea midline - Respiratory Cough normal expansion, normal respiratory effort - Abdomen Abdomen: soft, non tender - Neurologic normal coordination, normal sensation - Musculoskeletal normal posture - Psychiatric oriented to time, oriented to person, oriented to place, speech is normal, memory intact Results - Labs 06/08/17 18:46 06/08/17 18:46 Abnormal Lab Results - Last 24 Hours (Table) 06/08/17 Range/Units 22:35 Urine Appearance Cloudy H (Clear) Urine Protein 1+ H (Negative) Urine Ketones 1+ H (Negative) Urine Blood Small H (Negative) Urine Nitrite Positive H (Negative) Ur Leukocyte Esterase Large H (Negative) Urine WBC 107 H (0-5) /hpf Urine Bacteria Few H (None) /hpf Urine Mucus Rare H (None) /hpf Microbiology - Last 24 Hours (Table) 06/08/17 18:46 Blood Culture - Preliminary Blood No Growth after 24 hours 06/09/17 14:20 Urine Culture - Preliminary Urine,Clean Catch Assessment and Plan Assessment: Impression: Urinary tract infection with sepsis (elevated temperature), chronic cystitis, medical comorbidities. Recommendations appropriate oral antibiotics once the cultures are obtained. She should continue with the methenamine. We would like to see her in the office in one week.
[2017-06-10] MEDS: HEPARIN SODIUM,PORCINE 5,000 UNIT/ML 1 ML VIAL SQ SCH ×2 (07:48→20:34)
[2017-06-10] MEDS: GEMFIBROZIL 600 MG TAB PO SCH ×2 (07:49→20:34)
[2017-06-10] MEDS: AZITHROMYCIN 500 MG TAB PO SCH (07:49)
[2017-06-10] MEDS: PANTOPRAZOLE 40 MG TABLET PO SCH (07:49)
[2017-06-10] MEDS: METHENAMINE HIPPURATE 1 GM PO SCH ×2 (07:50→20:30)
[2017-06-10] MEDS: FLUTICASONE 50MCG/SPRAY NASAL 16GM EA NOSTRIL SCH (07:50)
[2017-06-10] MEDS: ALPRAZolam 0.5 MG TAB PO SCH ×2 (07:54→20:34)
--- NOTE | 2017-06-10 11:08 | P.PN ---
Subjective Progress Note Date: 06/10/17 Principal diagnosis: Cough, urinary tract infection with sepsis 81-year-old female who was seen in the emergency room for possible infection. She apparently came in complaining of lethargy generalized weakness and just not feeling well for about 3 days prior to admission. She did have a bit of a cough. Somewhat productive of phlegm. Not a lot. Not really impressive respiratory complaints. Also a slight temperature elevation and slight reduction and pulse oximetry. The patient apparently was seen in the emergency room and chest x-ray apparently was read out as showing some bibasilar atelectasis or possible pneumonia in the left lung. The x-ray findings are very non-impressive. Even more impressive than that was the fact that her urine was consistent with a bladder infection and may be the actual cause of her infection/sepsis. The patient apparently was recently told by urology that she did not have an infection for the first time in 6 months. She does have vague urinary complaints including some dysuria and frequency. Her medical history is mostly positive for GI bleed osteoarthritis frequent bladder infections tremors neuropathy lower extremity edema internal bowel syndrome and a bleeding ulcer. Surgical history includes orthopedic procedures as well as a tubal ligation. Medications are reviewed. On 06/10/2017 patient is seen in follow-up on medical surgical floor. No specific pulmonary complaints. She denies any chest congestion, wheezing or cough. She denies being short of breath, she is currently on room air with O2 saturation of 97%. She has been afebrile over the last 24 hours. She denies any fever or chills. She was seen by the urology service Dr. Morris who will continue her on her methenamine and antibiotics for her urinary tract infection and chronic cystitis. She can be discharged home from pulmonary standpoint. She has no chronic respiratory issues on the regular basis, she can follow-up with her primary care physician and the urology service. Objective - Vital Signs Vital signs: Vital Signs Temp 97.5 F L 06/10/17 07:00 Pulse 82 06/10/17 07:40 Resp 16 06/10/17 07:00 BP 146/64 06/10/17 07:00 Pulse Ox 97 06/10/17 07:25 Intake & Output 06/09/17 06/10/17 06/10/17 18:59 06:59 18:59 Intake Total 600 50 Balance 600 50 Intake: Intake, IV Titration 50 Amount cefTRIAXone 1,000 mg In 50 Sodium Chloride 0.9% 50 ml @ 100 mls/hr IVPB Q24HR [facility] Rx#:[id number] Oral 600 Other: Voiding Method Toilet Toilet Toilet # Voids 2 3 3 - Exam No acute distress, oriented 3. Sitting at the bedside with nasal O2 in place. Does not appear to be having any respiratory distress whatsoever. HEENT examination is grossly unremarkable. Mixed membranes are moist. Neck supple. Full range of motion. No adenopathy. No neck vein distention. Cardiovascular examination reveals regular rhythm rate. S1-S2 normal. Lungs are clear. No wheezes or crackles. Abdomen soft bowel sounds are heard. Extremities are intact. No cyanosis clubbing or edema. Skin without rash. Neurologic examination is nonfocal. - Labs CBC & Chem 7: 06/08/17 18:46 06/08/17 18:46 Labs: Microbiology - Last 24 Hours (Table) 06/08/17 18:46 Blood Culture - Preliminary Blood No Growth after 24 hours 06/09/17 14:20 Urine Culture - Preliminary Urine,Clean Catch Assessment and Plan Plan: (1) Urinary tract infection Current Visit: Yes Status: Acute Code(s): N39.0 - URINARY TRACT INFECTION, SITE NOT SPECIFIED SNOMED Code(s): 42404942 (2) Sepsis Current Visit: Yes Status: Acute Code(s): A41.9 - SEPSIS, UNSPECIFIED ORGANISM SNOMED Code(s): 62120006 (3) Pneumonia Ruled out. Plan: Patient is doing very well, she is denying any respiratory distress or any constitutional symptoms. No fever, no chills, no dysuria. She is alert, awake with no signs of confusion or acute delirium. She has been afebrile, she will continue on oral antibiotics for her urinary tract infection per urology. Patient is stable for discharge from pulmonary standpoint. She has no chronic respiratory complaints. She can follow-up with her PCP and urology service. I performed a history & physical examination of the patient and discussed their management with my nurse practitioner, Paige Urbina. I reviewed the nurse practitioner's note and agree with the documented findings and plan of care. Lung sounds are clear, no wheezes, no rhonchi, no signs of respiratory distress. I attest to the documentation by the nurse practitioner
[2017-06-10] MEDS: MULTIVITAMINS, THERA 1 EACH TAB PO SCH (12:53)
[2017-06-10] MEDS: PREGABALIN 75 MG CAP PO SCH (12:55)
[2017-06-10 13:19] LABS: Basophils % (A) 0 %; CH 31.8; CHCM 32.5; Eosinophils % (A) 0 %; HCT 34.4 % (34.0-46.0); HDW 2.78; HGB 11.1 gm/dL (11.4-16.0); Luc # (Auto) 0.29; Luc % (Auto) 2; Lymphocytes # (A) 2.2 k/uL (1.0-4.8); Lymphocytes % (A) 16 %; MCH 31.6 pg (25.0-35.0); MCHC 32.2 g/dL (31.0-37.0); MCV 98.3 fL (80.0-100.0); Mean Platelet Volume 7.9; Monocytes # (A) 1.3 k/uL (0-1.0); Monocytes % (A) 9 %; Neutrophils % (A) 72 %; WBC 13.8 k/uL (3.8-10.6); WBC (Perox) 14.28
[2017-06-10 13:30] LABS: ALT 97 U/L (9-52); AST 74 U/L (14-36); Alkaline Phosphatase 101 U/L (38-126); Anion Gap 11 mmol/L; Blood Urea Nitrogen 27 mg/dL (7-17); Calcium 8.9 mg/dL (8.4-10.2); Carbon Dioxide 26 mmol/L (22-30); Chloride 106 mmol/L (98-107); Glucose 95 mg/dL (74-99); Non-African American GFR(MDRD) >60 (>60 ml/min/1.73 sqM); Potassium 4.6 mmol/L (3.5-5.1); Sodium 143 mmol/L (137-145); Total Bilirubin 0.3 mg/dL (0.2-1.3); Total Protein 6.5 g/dL (6.3-8.2)
--- NOTE | 2017-06-10 14:17 | P.PN ---
Subjective Patient is doing well today. She does not have any complaints. Objective - Vital Signs Vital signs: Vital Signs Temp 97.5 F L 06/10/17 07:00 Pulse 82 06/10/17 07:40 Resp 16 06/10/17 07:00 BP 146/64 06/10/17 07:00 Pulse Ox 97 06/10/17 07:25 Intake & Output 06/09/17 06/10/17 06/10/17 18:59 06:59 18:59 Intake Total 600 50 Balance 600 50 Intake: Intake, IV Titration 50 Amount cefTRIAXone 1,000 mg In 50 Sodium Chloride 0.9% 50 ml @ 100 mls/hr IVPB Q24HR [facility] Rx#:[id number] Oral 600 Other: Voiding Method Toilet Toilet Toilet # Voids 2 3 3 - Exam General: The patient is awake and alert, in no distress Eye: there is normal conjunctiva bilaterally. Neck: The neck is supple, there is no JVD. Cardiovascular: Normal S1-S2, no S3-S4, no murmurs. Respiratory: Lungs clear to auscultation bilaterally Gastrointestinal: Abdomen is soft, nontender Musculoskeletal: There is no pedal edema. Neurological:. Speech is normal. Skin: Skin is warm and dry - Labs CBC & Chem 7: 06/10/17 12:37 06/10/17 12:37 Labs: Abnormal Lab Results - Last 24 Hours (Table) 06/10/17 06/10/17 Range/Units 12:37 12:37 WBC 13.8 H (3.8-10.6) k/uL RBC 3.50 L (3.80-5.40) m/uL Hgb 11.1 L (11.4-16.0) gm/dL Neutrophils # 10.0 H (1.3-7.7) k/uL Monocytes # 1.3 H (0-1.0) k/uL BUN 27 H (7-17) mg/dL AST 74 H (14-36) U/L ALT 97 H (9-52) U/L Microbiology - Last 24 Hours (Table) 06/08/17 18:46 Blood Culture - Preliminary Blood No Growth after 24 hours 06/09/17 14:20 Urine Culture - Preliminary Urine,Clean Catch Assessment and Plan Plan: 1. Uncomplicated urinary tract infection. Awaiting urine culture to finalize. 2. Bibasilar atelectasis. Pneumonia ruled out by pulmonology. Continue incentive spirometer. 3. Sepsis with septic shock. Probably attributed to #1. Blood culture pending. We will continue antibiotic. 4. Essential hypertension: Blood pressure well-controlled 5. DVT prophylaxis with subcu heparin Today, I reviewed medication list and lab work results. Continue current regimen. Awaiting urine and blood cultures to finalize. Anticipate discharge home tomorrow.
[2017-06-10] MEDS ORDERED: ZOLPIDEM 5 MG TAB PO PRN (14:51)
[2017-06-10] MEDS: PRIMIDONE 50 MG TAB PO SCH (20:31)
[2017-06-10] MEDS: PROPRANOLOL LA 60 MG CAP.SA.24H PO SCH (20:31)
[2017-06-10] MEDS: LORATADINE 10 MG TAB PO SCH (20:31)
[2017-06-10] MEDS: ATORVASTATIN 10 MG TAB PO SCH (20:34)
[2017-06-10] MEDS: SODIUM CHLORIDE 0.9% 1,000 ML IV SCH (20:35)
[2017-06-11 07:39] VITALS: BP 147/76; PULSE 102; RESP 20; TEMP 99
[2017-06-11 07:51] LABS: Basophils % (A) 0 %; CH 31.4; CHCM 32.1; Eosinophils # (A) 0.3 k/uL (0-0.7); Eosinophils % (A) 3 %; HGB 11.5 gm/dL (11.4-16.0); Luc # (Auto) 0.21; Luc % (Auto) 2; Lymphocytes % (A) 20 %; MCH 30.5 pg (25.0-35.0); MCHC 31.1 g/dL (31.0-37.0); MCV 98.1 fL (80.0-100.0); Mean Platelet Volume 8.4; Monocytes # (A) 0.9 k/uL (0-1.0); Monocytes % (A) 9 %; Neutrophils # (A) 6.6 k/uL (1.3-7.7); Neutrophils % (A) 66 %; RBC 3.77 m/uL (3.80-5.40); RDW 14.1 % (11.5-15.5); WBC (Perox) 10.71
[2017-06-11] MEDS: IPRATROPIUM-ALBUTEROL 3 ML NEB INHALATION SCH ×2 (08:01→11:47)
[2017-06-11] MEDS: ALPRAZolam 0.5 MG TAB PO SCH (08:06)
[2017-06-11] MEDS: guaiFENesin-Coden 100-10MG/5ML 10 ML CUP PO PRN (08:06)
[2017-06-11] MEDS: FLUTICASONE 50MCG/SPRAY NASAL 16GM EA NOSTRIL SCH (08:07)
[2017-06-11] MEDS: AZITHROMYCIN 500 MG TAB PO SCH (08:07)
[2017-06-11] MEDS: HEPARIN SODIUM,PORCINE 5,000 UNIT/ML 1 ML VIAL SQ SCH (08:07)
[2017-06-11] MEDS: GEMFIBROZIL 600 MG TAB PO SCH (08:07)
[2017-06-11] MEDS: PANTOPRAZOLE 40 MG TABLET PO SCH (08:08)
[2017-06-11] MEDS: METHENAMINE HIPPURATE 1 GM PO SCH (08:10)
[2017-06-11 08:12] LABS: ALT 81 U/L (9-52); AST 41 U/L (14-36); Alkaline Phosphatase 93 U/L (38-126); Anion Gap 10 mmol/L; Blood Urea Nitrogen 23 mg/dL (7-17); Calcium 8.9 mg/dL (8.4-10.2); Carbon Dioxide 26 mmol/L (22-30); Chloride 106 mmol/L (98-107); Glucose 96 mg/dL (74-99); Non-African American GFR(MDRD) 56 (>60 ml/min/1.73 sqM); Sodium 142 mmol/L (137-145); Total Bilirubin 0.3 mg/dL (0.2-1.3); Total Protein 6.6 g/dL (6.3-8.2)
--- NOTE | 2017-06-11 10:34 | P.PN ---
Subjective Progress Note Date: 06/11/17 Principal diagnosis: Cough, urinary tract infection with sepsis 81-year-old female who was seen in the emergency room for possible infection. She apparently came in complaining of lethargy generalized weakness and just not feeling well for about 3 days prior to admission. She did have a bit of a cough. Somewhat productive of phlegm. Not a lot. Not really impressive respiratory complaints. Also a slight temperature elevation and slight reduction and pulse oximetry. The patient apparently was seen in the emergency room and chest x-ray apparently was read out as showing some bibasilar atelectasis or possible pneumonia in the left lung. The x-ray findings are very non-impressive. Even more impressive than that was the fact that her urine was consistent with a bladder infection and may be the actual cause of her infection/sepsis. The patient apparently was recently told by urology that she did not have an infection for the first time in 6 months. She does have vague urinary complaints including some dysuria and frequency. Her medical history is mostly positive for GI bleed osteoarthritis frequent bladder infections tremors neuropathy lower extremity edema internal bowel syndrome and a bleeding ulcer. Surgical history includes orthopedic procedures as well as a tubal ligation. Medications are reviewed. On 06/10/2017 patient is seen in follow-up on medical surgical floor. No specific pulmonary complaints. She denies any chest congestion, wheezing or cough. She denies being short of breath, she is currently on room air with O2 saturation of 97%. She has been afebrile over the last 24 hours. She denies any fever or chills. She was seen by the urology service Dr. Morris who will continue her on her methenamine and antibiotics for her urinary tract infection and chronic cystitis. She can be discharged home from pulmonary standpoint. She has no chronic respiratory issues on the regular basis, she can follow-up with her primary care physician and the urology service. On 06/11/2017 patient is being discharged home. She denies any chest congestion , wheezing or shortness of breath. She is on room air with O2 sat of 93-94%. She is afebrile. She does have occasional loose nonproductive cough. Urine culture from 06/09/2017 showed no growth after 18 hours. Patient is stable for discharge from pulmonary standpoint. Objective - Vital Signs Vital signs: Vital Signs Temp 99.0 F 06/11/17 07:00 Pulse 102 H 06/11/17 07:00 Resp 20 06/11/17 08:00 BP 147/76 06/11/17 07:00 Pulse Ox 93 L 06/11/17 07:00 Intake & Output 06/10/17 06/11/17 06/11/17 18:59 06:59 18:59 Intake Total 50 50 Balance 50 50 Intake: Intake, IV Titration 50 50 Amount cefTRIAXone 1,000 mg In 50 50 Sodium Chloride 0.9% 50 ml @ 100 mls/hr IVPB Q24HR [facility] Rx#:[id number] Other: Voiding Method Toilet Toilet Toilet # Voids 1 3 3 - Exam No acute distress, oriented 3. Sitting at the bedside with nasal O2 in place. Does not appear to be having any respiratory distress whatsoever. HEENT examination is grossly unremarkable. Mixed membranes are moist. Neck supple. Full range of motion. No adenopathy. No neck vein distention. Cardiovascular examination reveals regular rhythm rate. S1-S2 normal. Lungs are clear. No wheezes or crackles. Abdomen soft bowel sounds are heard. Extremities are intact. No cyanosis clubbing or edema. Skin without rash. Neurologic examination is nonfocal. - Labs CBC & Chem 7: 06/11/17 07:23 06/11/17 07:23 Labs: Abnormal Lab Results - Last 24 Hours (Table) 06/10/17 06/10/17 06/11/17 Range/Units 12:37 12:37 07:23 WBC 13.8 H (3.8-10.6) k/uL RBC 3.50 L 3.77 L (3.80-5.40) m/uL Hgb 11.1 L (11.4-16.0) gm/dL Neutrophils # 10.0 H (1.3-7.7) k/uL Monocytes # 1.3 H (0-1.0) k/uL BUN 27 H (7-17) mg/dL AST 74 H (14-36) U/L ALT 97 H (9-52) U/L 06/11/17 Range/Units 07:23 WBC (3.8-10.6) k/uL RBC (3.80-5.40) m/uL Hgb (11.4-16.0) gm/dL Neutrophils # (1.3-7.7) k/uL Monocytes # (0-1.0) k/uL BUN 23 H (7-17) mg/dL AST 41 H (14-36) U/L ALT 81 H (9-52) U/L Microbiology - Last 24 Hours (Table) 06/09/17 14:20 Urine Culture - Final Urine,Clean Catch 06/08/17 18:46 Blood Culture - Preliminary Blood No Growth after 48 hours Assessment and Plan Plan: (1) Urinary tract infection Current Visit: Yes Status: Acute Code(s): N39.0 - URINARY TRACT INFECTION, SITE NOT SPECIFIED SNOMED Code(s): 50141031 (2) Sepsis Current Visit: Yes Status: Acute Code(s): A41.9 - SEPSIS, UNSPECIFIED ORGANISM SNOMED Code(s): 77385314 (3) Pneumonia Ruled out. Plan: Patient is doing very well, she is denying any respiratory distress or any constitutional symptoms. No fever, no chills, no dysuria. She is alert, awake with no signs of confusion or acute delirium. She has been afebrile, she will continue on oral antibiotics for her urinary tract infection per urology. Patient is stable for discharge from pulmonary standpoint. She has no chronic respiratory complaints. She can follow-up with her PCP and urology service. I performed a history & physical examination of the patient and discussed their management with my nurse practitioner, Paige Urbina. I reviewed the nurse practitioner's note and agree with the documented findings and plan of care. Lung sounds are clear, no wheezes, no rhonchi, no signs of respiratory distress. I attest to the documentation by the nurse practitioner
--- NOTE | 2017-06-11 11:29 | P.DS ---
Providers Date of admission: 06/08/17 19:53 Expected date of discharge: 06/11/17 Attending physician: Martinez Chi Consults: 06/08/17 20:00 Consult Physician Routine Consulting Provider: Henny Baird Consult Reason/Comments: Pneumonia and bronchospasm Do you want consulting provider notified?: Yes 06/09/17 18:36 Consult Physician Routine Consulting Provider: Kartik Bardales Consult Reason/Comments: known to practice Do you want consulting provider notified?: Yes [facility] Course: This is a 81-year-old female who presented to the hospital with worsening confusion and generalized weakness and was found to have urosepsis on presentation. Patient was admitted to the hospital and was treated with broad- spectrum antibiotic and IV fluid. Her overall condition improved. She was seen by urology as she had recurrent UTIs in the past and was seen by them in the office previously. Her urine and blood culture remained negative. She improved significantly and would be discharged home to finish 5 days course of Keflex at home. She will follow-up with urology as directed. 1. Uncomplicated urinary tract infection. 2. Bibasilar atelectasis. Pneumonia ruled out by pulmonology. Continue incentive spirometer. 3. Sepsis without septic shock. attributed to #1. 4. Essential hypertension: Blood pressure well-controlled Patient Condition at Discharge: Fair Plan - Discharge Summary New Discharge Prescriptions: New Cephalexin [Keflex] 250 mg PO Q8HR #15 capsule Continue Propranolol HCl [Inderal LA] 120 mg PO HS Omeprazole 40 mg PO DAILY Levocetirizine Dihydrochloride [Xyzal] 5 mg PO HS traMADol HCl [Ultram] 50 mg PO Q6H PRN PRN Reason: Pain Methocarbamol [Robaxin] 500 mg PO Q6HR PRN PRN Reason: Pain Gemfibrozil [Lopid] 600 mg PO BID Pregabalin [Lyrica] 150 mg PO BID Primidone [Mysoline] 25 mg PO HS Lovastatin [Mevacor] 20 mg PO HS Multivitamins, Thera [Multivitamin (formulary)] 1 tab PO DAILY Fluticasone Nasal [place] [Flonase Nasal [place]] 1 spray EA NOSTRIL DAILY Cholecalciferol [Vitamin D3] 1,000 unit PO BID ALPRAZolam [Xanax] 0.5 mg PO BID Methenamine Hippurate [Hiprex] 1 gm PO BID L.acidoph,Paracasei, B.lactis [Probiotic] 1 cap PO BID Glucosamine/Chondr Cochran A Sod [Osteo Bi-Flex Caplet] 1 tab PO DAILY Cranberry Fruit Extract [Cranberry] 400 mg PO TID Estradiol [Estrace Cream 0.01%] 1 applic VAGINAL Q7D Ibuprofen [Motrin] 600 mg PO Q6HR PRN PRN Reason: Pain Discontinued predniSONE 20 mg PO BID traMADol HCL [traMADol HCL ER] 300 mg PO DAILY PRN PRN Reason: Pain Discharge Medication List ALPRAZolam [Xanax] 0.5 mg PO BID 04/25/17 [History] Cholecalciferol [Vitamin D3] 1,000 unit PO BID 04/25/17 [History] Fluticasone Nasal [place] [Flonase Nasal [place]] 1 spray EA NOSTRIL DAILY 04/25/17 [History] Gemfibrozil [Lopid] 600 mg PO BID 04/25/17 [History] Glucosamine/Chondr Cochran A Sod [Osteo Bi-Flex Caplet] 1 tab PO DAILY 04/25/17 [ History] L.acidoph,Paracasei, B.lactis [Probiotic] 1 cap PO BID 04/25/17 [History] Levocetirizine Dihydrochloride [Xyzal] 5 mg PO HS 04/25/17 [History] Lovastatin [Mevacor] 20 mg PO HS 04/25/17 [History] Methenamine Hippurate [Hiprex] 1 gm PO BID 04/25/17 [History] Methocarbamol [Robaxin] 500 mg PO Q6HR PRN 04/25/17 [History] Multivitamins, Thera [Multivitamin (formulary)] 1 tab PO DAILY 04/25/17 [History ] Omeprazole 40 mg PO DAILY 04/25/17 [History] Pregabalin [Lyrica] 150 mg PO BID 04/25/17 [History] Primidone [Mysoline] 25 mg PO HS 04/25/17 [History] Propranolol HCl [Inderal LA] 120 mg PO HS 04/25/17 [History] traMADol HCl [Ultram] 50 mg PO Q6H PRN 04/25/17 [History] Cranberry Fruit Extract [Cranberry] 400 mg PO TID 10/22/17 [History] Estradiol [Estrace Cream 0.01%] 1 applic VAGINAL Q7D 06/08/17 [History] Ibuprofen [Motrin] 600 mg PO Q6HR PRN 06/08/17 [History] Cephalexin [Keflex] 250 mg PO Q8HR #15 capsule 06/11/17 [Rx] Follow up Appointment(s)/Referral(s): Mesha Kumar MD [Primary Care Provider] - 1-2 days Kartik Bardales MD [STAFF PHYSICIAN] - 1 Week Patient Instructions/Handouts: Urinary Tract Infection in Women (DC), Pneumonia (DC) Discharge Disposition: HOME SELF-CARE
[2017-06-11] MEDS: PREGABALIN 75 MG CAP PO SCH (12:00)
[2017-06-11] MEDS: MULTIVITAMINS, THERA 1 EACH TAB PO SCH (12:01)
== END 2017-06-11 12:13 | disposition home or self-care (01) | DRG 872 ==
LOC: EC 18:21 → 4MS4W 19:53
PROVIDERS: ADMIT Internal Medicine; ATTEND Internal Medicine
DX: A41.9 Sepsis, unspecified organism (principal); N39.0 Urinary tract infection, site not specified; J98.11 Atelectasis; G62.9 Polyneuropathy, unspecified; I10 Essential (primary) hypertension; F41.9 Anxiety disorder, unspecified; J98.01 Acute bronchospasm; K58.9 Irritable bowel syndrome, unspecified; N30.20 Other chronic cystitis without hematuria; R09.02 Hypoxemia; M19.90 Unspecified osteoarthritis, unspecified site; R25.1 Tremor, unspecified; Z79.52 Long term (current) use of systemic steroids; Z79.899 Other long term (current) drug therapy; Z87.440 Personal history of urinary (tract) infections; Z87.891 Personal history of nicotine dependence; Z88.6 Allergy status to analgesic agent
CPT/HCPCS: 36415; 71020; 80053; 81001; 82550; 82553; 83605; 83735; 83880; 85025; 87040; 87086; 87502; 93005; 94640; 94760; 96361; 96365; 96375; 99285

== ENCOUNTER → 2017-10-31 | Outpatient (CLI) | payer MEDICARE ==
--- NOTE | 2017-10-31 13:44 | XR ---
EXAMINATION TYPE: XR cervical spine limited DATE OF EXAM: 10/31/2017 CLINICAL HISTORY: pain TECHNIQUE: 3 views of the cervical spine are submitted. COMPARISON: None. FINDINGS: Posterior pedicular screws and rods extending from C2 through C7. Alignment is anatomic. Mo derate to severe degenerative disc space narrowing and spondylosis identified at C5-6 and C6-7. IMPRESSION: Postoperative and degenerative changes as noted. Alignment anatomic.
== END | disposition home or self-care (01) ==
LOC: RADXRMAIN 12:53
PROVIDERS: ATTEND Neurological Surgery
DX: M47.812 Spondylosis without myelopathy or radiculopathy, cervical region (principal); Z98.890 Other specified postprocedural states
CPT/HCPCS: 72040

== ENCOUNTER → 2018-01-05 | Outpatient (CLI) | payer MEDICARE ==
--- NOTE | 2018-01-05 13:14 | XR ---
EXAMINATION TYPE: XR cervical spine limited DATE OF EXAM: 01/05/2018 COMPARISON: 10/31/2017 HISTORY: 82-year-old female recent cervical fusion, arthrodesis TECHNIQUE: 3 views FINDINGS: No predental space widening or prevertebral soft tissue swelling. There is C2 through C7 posterior cervical fusion with corresponding laminectomies. Normal odontoid vi ew. The cervicothoracic junction is obscured by the patient's shoulders and not assessed. Slight diff erence in positioning of the distal aspects of the C5 and C6 transfacet screws likely projectional. IMPRESSION: 1. C2-C7 posterior cervical fusion with laminectomies. 2. Suspect that positional differences account for the different appearance to the positioning of the distal aspect of the C5 and C6 transfacet screws. Clinically correlate. 3. Cervicothoracic junction is obscured by the patient's shoulders and not assessed.
== END | disposition home or self-care (01) ==
LOC: RADXRMAIN 10:08
PROVIDERS: ATTEND Neurological Surgery
DX: Z47.89 Encounter for other orthopedic aftercare (principal); Z98.1 Arthrodesis status
CPT/HCPCS: 72040

== ENCOUNTER → 2018-01-31 | Outpatient (CLI) | payer MEDICARE ==
--- NOTE | 2018-02-02 10:06 | MR ---
EXAMINATION TYPE: MR lumbar spine wo con DATE OF EXAM: 01/31/2018 COMPARISON: 03/21/2017 HISTORY: Spondylosis with radiculopathy lumbosacral region, pain TECHNIQUE: T1 and T2 axial and sagittal images of the lumbar spine are submitted. FINDINGS: There is no abnormal signal seen within the visualized spinal cord or paraspinal soft tissu es. At L1-2 there is facet arthropathy but no canal stenosis or foraminal encroachment. No discrete herni ation. At L2-3 there is severe degenerative disc disease with facet arthropathy and ligamentum flavum hypert rophy. Circumferential disc bulging and posterior spur formation result in moderate bilateral foramin al encroachment and mild central stenosis a small left paracentral disc protrusion is suspected. At L3-4 there is severe degenerative disc disease with marked facet arthropathy, ligamentum flavum hy pertrophy and diffuse disc bulging resulting in moderate to severe bilateral foraminal encroachment a nd moderate to severe canal stenosis. At L4-5 there is severe degenerative disc disease and grade 2 anterolisthesis. Severe facet arthropat hy. Disc bulging and hypertrophic changes contribute to severe canal stenosis and severe bilateral fo raminal encroachment. At L5-S1 there is severe degenerative disc disease. There is a focal central herniation which is stab le results in impression upon the thecal sac. Marked facet arthropathy noted. There is moderate to se bernadette bilateral foraminal encroachment. IMPRESSION: 1. Multilevel severe degenerative disc disease with persistent grade 2 anterolisthesis L4 on L5. Find ings are stable. 2. Stable disc bulging with hypertrophic changes L4-L5 resulting in severe canal stenosis and bilater al severe foraminal encroachment. 3. Stable central disc protrusion L5-S1 with mild effacement of thecal sac and mild to severe bilater al foraminal encroachment. 4. Stable disc bulging and hypertrophic changes L3-L4 with moderate to severe canal stenosis and bila teral foraminal encroachment.
== END | disposition home or self-care (01) ==
LOC: RADMRIMAIN 11:54
PROVIDERS: ATTEND Neurological Surgery
DX: M99.73 Connective tissue and disc stenosis of intervertebral foramina of lumbar region (principal); M48.061 Spinal stenosis, lumbar region without neurogenic claudication; M51.27 Other intervertebral disc displacement, lumbosacral region; M43.16 Spondylolisthesis, lumbar region; M51.16 Intervertebral disc disorders with radiculopathy, lumbar region
CPT/HCPCS: 72148

== ENCOUNTER → 2018-04-13 | Outpatient (CLI) | payer MEDICARE ==
--- NOTE | 2018-04-13 12:24 | XR ---
EXAMINATION TYPE: XR lumbar spine 2 or 3V DATE OF EXAM: 04/13/2018 CLINICAL HISTORY: pain TECHNIQUE: Three views of the lumbar spine are submitted. COMPARISON: None. FINDINGS: Postoperative change of lumbar laminectomy and fusion extending from L2 through L5 S1. Intervertebral spacers are in place. Pedicular screws are intact. Grade 1 anterolisthesis L5 on S1 of 3 mm. No evid ence for compression fracture. IMPRESSION: Postoperative changes as discussed. ICD 10 NO FRACTURE, INITIAL EVALUATION
== END | disposition home or self-care (01) ==
LOC: RADXRMAIN 11:46
PROVIDERS: ATTEND Neurological Surgery
DX: M48.061 Spinal stenosis, lumbar region without neurogenic claudication (principal); Z98.890 Other specified postprocedural states
CPT/HCPCS: 72100

== ENCOUNTER → 2018-05-14 | Outpatient (CLI) | payer MEDICARE ==
--- NOTE | 2018-05-14 18:08 | XR ---
EXAMINATION TYPE: XR Hip Bilateral and AP pelvis DATE OF EXAM: 05/14/2018 COMPARISON: None HISTORY: Degenerative changes, pain TECHNIQUE: AP pelvis and bilateral hips 2 views each FINDINGS: Pelvis: No acute fractures are evident. Postsurgical changes are within the lumbar spine. Normal bowel gas is present. Femoral heads articulate with the acetabulum. Joint spaces are preserved. No acute fractures are evid ent. IMPRESSION: 1. Postsurgical changes within the lumbar spine. 2. Acute or chronic changes of the hips otherwise not evident.
--- NOTE | 2018-05-15 08:02 | CT ---
EXAMINATION TYPE: CT lumbar spine wo con DATE OF EXAM: 01/31/2018 COMPARISON: None HISTORY: Leg weakness, pain to back of right leg. CT DLP: 1141.[address] of the lumbar spine was performed. Bone and soft tissue window settings are submitted as well as coronal and sagittal reconstructions. L1-L2: There is a vertically oriented fracture traversing the entirety of the L1 vertebral body at it s posterior one third. There is surrounding hematoma suggesting recent fracture. There is no evidence for malalignment at this time. There is evidence of severe degenerative disc disease with vacuum dis ks noted at this level. Mild circumferential disc bulge is noted greatest posteriorly. Mild effacemen t ventral thecal sac. No evidence of bony retropulsion. Foramina are patent bilaterally. L2-L3: Decompressive laminectomy with fusion noted. Intervertebral body spacer in place. Pedicular sc rews with the rods noted bilaterally. Alignment is anatomic. Streak artifact limits evaluation. Mild posterior disc bulge without evidence for disc herniation protrusion or central stenosis. Foramina ar e patent bilaterally. L3-L4: Decompressive laminectomy with fusion noted. Intervertebral body spacer in place. Pedicular sc rews with the rods noted bilaterally. Alignment is anatomic. Streak artifact limits evaluation. Mild posterior disc bulge without evidence for disc herniation protrusion or central stenosis. Foramina ar e patent bilaterally. L4-L5: Decompressive laminectomy with fusion noted. Intervertebral body spacer in place. Pedicular sc rews with the rods noted bilaterally. Alignment is anatomic. Streak artifact limits evaluation. Mild posterior disc bulge without evidence for disc herniation protrusion or central stenosis. Foramina ar e patent bilaterally. L5-S1: Decompressive laminectomy with fusion noted. Intervertebral body spacer in place. Pedicular sc rews with the rods noted bilaterally. Alignment is anatomic. Streak artifact limits evaluation. Mild posterior disc bulge without evidence for disc herniation protrusion or central stenosis. Foramina ar e patent bilaterally. IMPRESSION: 1. There is a vertically oriented fracture traversing the entirety of the L1 vertebral body at its po sterior one third. There is surrounding hematoma suggesting recent fracture. 2. Laminectomy changes with fusion extending from L2 through L5 S1 with anatomic alignment noted. No evidence for recurrent or residual disease.
== END | disposition home or self-care (01) ==
LOC: RADCTMAIN 16:28
PROVIDERS: ATTEND Neurological Surgery
DX: S32.019A Unspecified fracture of first lumbar vertebra, initial encounter for closed fracture (principal); M25.551 Pain in right hip; M25.552 Pain in left hip; Z98.1 Arthrodesis status
CPT/HCPCS: 72131; 73521

== ENCOUNTER → 2018-07-17 | Outpatient (CLI) | payer MEDICARE ==
--- NOTE | 2018-07-17 12:42 | XR ---
EXAMINATION TYPE: XR lumbar spine 2 or 3V DATE OF EXAM: 07/17/2018 CLINICAL HISTORY: 4 month follow up fusion TECHNIQUE: Three views of the lumbar spine are submitted. COMPARISON: 04/13/2018 FINDINGS: Postoperative change of lumbar laminectomy and fusion extending from L2 through L5 S1. Intervertebral spacers are in place. Pedicular screws are intact. Persistent anterolisthesis L5 on S1 of 3 mm. New moderate compression fracture of L1. Loss of height estimated at 50%. No bony retropulsion appreciate d. No additional fractures seen at this time. IMPRESSION: 1. Stable postoperative alignment. 2. Interval moderate compression fracture of L1 as noted above.
== END | disposition home or self-care (01) ==
LOC: RADXRMAIN 11:50
PROVIDERS: ATTEND Neurological Surgery
DX: S32.019A Unspecified fracture of first lumbar vertebra, initial encounter for closed fracture (principal); Z98.890 Other specified postprocedural states
CPT/HCPCS: 72100

== ENCOUNTER → 2018-07-21 | Outpatient (CLI) | payer MEDICARE ==
--- NOTE | 2018-07-21 23:18 | CT ---
EXAMINATION TYPE: CT lumbar spine wo con DATE OF EXAM: 07/21/2018 COMPARISON: 05/14/2018 HISTORY: 82-year-old female compression fracture lumbar region TECHNIQUE: Contiguous axial scanning of the lumbar spine without IV contrast. Coronal and sagittal re constructions performed. CT DLP: 205 mGycm Automated exposure control for dose reduction was used. FINDINGS: Postsurgical changes of L2-S1 posterior and interbody fusion. Additional left lateral fusion screws a re present at L3 and L4 levels. As compared to 05/14/2018, there is progression in anterior height loss of the L1 vertebral body now w ith 20% overall appear height loss. Progressive degenerative disc disease with greater vacuum both at T12-L1 and L1-L2. There is a linear cleft along the anterior aspect of the inferior endplate which m ay be seen in the setting of chronic bowel disease. No interval retropulsion into the spinal canal. There is some sclerosis within the vertebral body now seen suggesting some bony consolidation of the tendon. Residual mild paravertebral soft tissue inflammation and swelling. Mildly ectatic lower descending thoracic aorta at 2.6 cm. Tiny hiatal hernia. Cholecystectomy clips. No new vertebral compression collapse is seen. IMPRESSION: 1. REDEMONSTRATED L2-S1 POSTERIOR AND INTERBODY FUSION. 2. REDEMONSTRATED VERTEBRAL BODY FRACTURE OF L1, NOW WITH INTERVAL BONY CONSOLIDATION LIKELY DUE TO A TTEMPTED HEALING. THERE IS NEW MILD ANTERIOR WEDGING NOW WITH 20% ANTERIOR HEIGHT LOSS AND A CLEFT OF AIR ANTERIORLY ALONG THE INFERIOR ENDPLATE WHICH MAY BE SEEN IN THE SETTING OF KUMMEL'S DISEASE. NO RETROPULSION INTO THE SPINAL CANAL. GIVEN MILD PARAVERTEBRAL SWELLING/HEMATOMA, CONSIDER POSSIBLE ACU TE ON CHRONIC OR ACUTE ON SUBACUTE FRACTURE.
== END | disposition home or self-care (01) ==
LOC: RADCTMAIN 16:21
PROVIDERS: ATTEND Neurological Surgery
DX: M48.56XD Collapsed vertebra, not elsewhere classified, lumbar region, subsequent encounter for fracture with routine healing (principal); Z98.1 Arthrodesis status
CPT/HCPCS: 72131

== ENCOUNTER → 2018-08-20 | Outpatient (CLI) | payer MEDICARE ==
--- NOTE | 2018-08-27 14:59 | MM ---
Reason for exam: screening (asymptomatic). Last mammogram was performed 1 year and 5 months ago. History: Patient is postmenopausal . Stereotactic core biopsy of the left breast, 2005. Benign stereotactic core biopsy of the left breast, April 24, 2004. Core biopsy of the left breast. Excisional biopsy of the left breast. Taking tamoxifen for 4 years 5 months beginning at age 66. MG 3D Screening Mammo W/Cad Bilateral CC and MLO view(s) were taken. Prior study comparison: March 13, 2017, bilateral MG 3d screening mammo w/cad. February 15, 2016, bilateral MG screening mammo w CAD. There is benign-appearing coarse calcification in the left breast. Developing asymmetry in the lateral cc view x 2 in the right breast. ASSESSMENT: Incomplete: need additional imaging evaluation, BI-RAD 0 RECOMMENDATION: Special view mammogram of the right breast.
== END | disposition home or self-care (01) ==
LOC: RADMAMWWP 09:45
PROVIDERS: ATTEND Obstetrics & Gynecology
DX: Z12.31 Encounter for screening mammogram for malignant neoplasm of breast (principal)
CPT/HCPCS: 77063; 77067

== ENCOUNTER → 2018-08-24 | Outpatient (CLI) | payer MEDICARE ==
--- NOTE | 2018-08-24 11:41 | XR ---
EXAMINATION TYPE: XR lumbar spine 2 or 3V DATE OF EXAM: 08/24/2018 CLINICAL HISTORY: Compression fracture. TECHNIQUE: Frontal and lateral images of the lumbar spine are obtained. COMPARISON: Lumbar spine x-ray July 17, 2018. CT lumbar spine July 21, 2018. FINDINGS: There are 5 lumbar type vertebral bodies redemonstrated. The lumbar spine shows stable le voconvex scoliotic curvature centered at L1 level. There is interval vertebroplasty at L1 level with cement material extending into superior T12-L1 disc space. Mild height loss L1 and L2 levels is redem onstrated. Posterior interpedicular rods and screws transfix L2-S1 levels bilaterally with left lateral fixation hardware also redemonstrated at several levels. Multilevel laminectomy defects are seen better on CT . Artificial disc material is present at several levels. Metallic cage L5-S1 disc space remains prese nt. Overlying vascular calcification is again seen. Alignment is stable. IMPRESSION: As above. Interval vertebroplasty with stable mild compression L1 level.
== END ==
LOC: RADXRMAIN 11:15
PROVIDERS: ATTEND Neurological Surgery
DX: M48.50XD Collapsed vertebra, not elsewhere classified, site unspecified, subsequent encounter for fracture with routine healing (principal); M43.16 Spondylolisthesis, lumbar region; M41.86 Other forms of scoliosis, lumbar region
CPT/HCPCS: 72100

== ENCOUNTER → 2018-09-03 | Outpatient (CLI) | payer MEDICARE ==
--- NOTE | 2018-09-07 18:24 | MM ---
Reason for exam: additional evaluation requested from abnormal screening. Last mammogram was performed less than 1 month ago. History: Patient is postmenopausal and has history of bilateral breast cancer. Stereotactic core biopsy of the left breast, 2005. Benign stereotactic core biopsy of the left breast, April 24, 2004. Core biopsy of the left breast. Excisional biopsy of the left breast. Taking tamoxifen for 4 years 5 months beginning at age 66. Physical Findings: Nurse did not find any significant physical abnormalities on exam. MG 3D Work Up W/Cad RT Spot compression CC, spot compression MLO, and ML view(s) were taken of the right breast. Prior study comparison: August 20, 2018, bilateral MG 3d screening mammo w/cad. March 13, 2017, bilateral MG 3d screening mammo w/cad. There are scattered fibroglandular densities. The right breast lateral asymmetric densities disperse on additional views. These results were verbally communicated with the patient and result sheet given to the patient on 09/03/18. ASSESSMENT: Negative, BI-RAD 1 RECOMMENDATION: Routine screening mammogram of both breasts in 1 year.
== END | disposition home or self-care (01) ==
LOC: RADMAMWWP 09:46
PROVIDERS: ATTEND Obstetrics & Gynecology
DX: R92.8 Other abnormal and inconclusive findings on diagnostic imaging of breast (principal)
CPT/HCPCS: 77065; G0279; 77061

== ENCOUNTER → 2018-11-20 | Outpatient (CLI) | payer MEDICARE ==
--- NOTE | 2018-11-20 18:21 | CT ---
EXAMINATION TYPE: CT lumbar spine wo con DATE OF EXAM: 11/20/2018 COMPARISON: 07/21/2018 HISTORY: Lumbar fusion. CT DLP: 1001 mGycm CONTRAST: None TECHNIQUE: CT of the lumbar spine is performed on a spiral scan at 3 mm thick sections. Reconstructed images are performed in the coronal and sagittal planes. FINDINGS: T12: There is been interval vertebroplasty. No posterior wall displacement is evident. Neural foramen appear patent. T12-L1: No focal disc herniation or significant disc bulge is evident. Pedicle screws limit the evalu ation with beam hardening artifact. L1-L2: No focal disc herniation or significant disc bulge is evident. Pedicle screws and disc spacer limit the evaluation. No obvious stenosis is evident. L2-L3: Beam hardening artifact is present from pedicle screws and disc spacer. No obvious stenosis is evident L3-L4: No focal disc herniation or significant disc bulge is evident. Beam hardening artifact limits this evaluation level. L4-L5: No focal disc herniation or significant disc bulge is evident. Beam hardening artifact limits this evaluation level. L5-S1: There is a large central spur which may have anterior thecal sac contact. Facet hypertrophy on the left is present. Beam hardening artifact causes limitation. Vertebral alignment appears normal. IMPRESSION: 1. Severe limitations to this examination due to pedicle screws through multiple levels. 2. Interval vertebroplasty at T12. No posterior wall displacement is evident. 3. Central spur L5-S1 may have thecal sac compression. Stenosis is not identified.
== END | disposition home or self-care (01) ==
LOC: RADCTMAIN 13:08
PROVIDERS: ATTEND Neurological Surgery
DX: M46.07 Spinal enthesopathy, lumbosacral region (principal); Z98.1 Arthrodesis status
CPT/HCPCS: 72131

== ENCOUNTER → 2018-12-12 | Outpatient (CLI) | payer MEDICARE ==
--- NOTE | 2018-12-12 13:54 | MR ---
EXAMINATION TYPE: MR cervical spine wo con DATE OF EXAM: 12/12/2018 COMPARISON: Plain film 01/05/2018 HISTORY: Ataxic gait TECHNIQUE: Multiplanar, multisequence images of the cervical spine were acquired. C2-C3: No evidence for degenerative disc disease. No disc bulge/herniation or protrusion. No Canal stenosis. Foramina are patent bilaterally. C3-C4: No evidence for degenerative disc disease. No disc bulge/herniation or protrusion. No Canal stenosis. Foramina are patent bilaterally. C4-C5: Posterior extension of endplate disc complex causes mild anterior mass effect on the thecal sa c. No significant foraminal encroachment. C5-C6: There may be some foraminal encroachment present greater on the left due to lateral extension of endplate disc complex. No significant central stenosis. No disc herniation. C6-C7: Left-sided foraminal encroachment is present. No evident disc herniation or significant centra l stenosis. C7-T1: There is moderate to severe spinal stenosis, facet arthropathy change is present with posterio r broad-based disc bulge causing some mass effect on the cervical cord, some local cervical cord oro ges suspected possibly representing gliosis. There may be foraminal encroachment. Posterior cervical fusion changes are again noted. There is artifact due to patient's hardware. Minim al anterolisthesis grade 1 C3-4, C4-5. There is multilevel spondylosis, loss of disc signal compatibl e disc desiccation, there is loss of disc height at C4-5, C5-6 and C6-7, C7-T1 compatible degenerativ e disc disease. There is endplate discogenic marrow signal change. Craniovertebral junction relations hips are within normal limits. Abnormal cord signal is noted at C3-4, C4-5, C5-6 compatible with mye lomalacia. IMPRESSION: Cord signal changes at multiple levels as described. Degenerative disc disease. Spinal stenosis at C7 -T1. Postop changes.
== END | disposition home or self-care (01) ==
LOC: RADMRIMAIN 10:43
PROVIDERS: ATTEND Neurological Surgery
DX: M48.03 Spinal stenosis, cervicothoracic region (principal); M50.30 Other cervical disc degeneration, unspecified cervical region; Z98.890 Other specified postprocedural states
CPT/HCPCS: 72141

== ENCOUNTER → 2019-04-01 | Outpatient (CLI) | payer MEDICARE ==
--- NOTE | 2019-04-01 08:36 | XR ---
EXAMINATION TYPE: XR lumbar spine 2 or 3V DATE OF EXAM: 04/01/2019 CLINICAL HISTORY: Follow-up from lumbar arthrodesis. TECHNIQUE: Upright standing frontal and lateral images of the lumbar spine are obtained. COMPARISON: 08/24/2018 FINDINGS: Vertebroplasty is seen of L1. There is a levoscoliosis of the thoracolumbar junction is vis ualized. There is surgical fusion of L2-S1 with intervertebral disc cages throughout. Compression def ormity is also seen of L2 that is surgically fixated unchanged from the prior. There appears to be a grade 1 anterolisthesis of L4 on L5 that is stable from the prior and surgically fixated. No new reji lignment. Cholecystectomy clips and moderate atheromatous change of the abdominal aorta are incidenta lly seen. IMPRESSION: Stable postoperative change of the lumbosacral spine, stable compression deformities of L 1 and L2, stable grade 1 anterolisthesis of L4 on L5, and stable levoscoliosis of the visualized thor acolumbar junction.
--- NOTE | 2019-04-01 12:12 | CT ---
EXAMINATION TYPE: CT cervical spine w con DATE OF EXAM: 04/01/2019 COMPARISON: MRI of the cervical spine dated 12/12/2018 HISTORY: Arthrodesis status CT DLP: 636.4 mGycm Automated exposure control for dose reduction was used. CONTRAST: Performed with IV Contrast, patient injected with 80 mL of Isovue 370. FINDINGS: There are postsurgical changes of posterior cervical fusion from C2 to C7. Transpedicular screws are seen on the right at C2, C3, C4, C5, C6 and C7. There are also transverse fibular screws on the left at C2, C3, C4, C5 and C7. Vertical stabilization rods are seen. Laminectomy changes are seen from C3- 5. Hardware appears intact. Mild periprosthetic lucency seen surrounding the right C3 screw. The medial aspect of the right C7 screw is seen adjacent to the right vertebral artery, but vertebral arteries appear patent. Degenerative spondylotic changes are seen throughout the cervical spine with grade 1 anterolisthesis at C4-5 and disc space narrowing with bridging osteophytes at C5-6 and C6-7. No acute fracture. Left apical scarring/atelectasis. Prevertebral soft tissues appear grossly unremarkable. Hypoattenuating l esion within the right thyroid gland measuring up to 0.9 cm. Further evaluation may be obtained with dedicated thyroid ultrasound. Asymmetric soft tissue along the left vocal cords best seen on image 44 with effacement of the left v entricle. IMPRESSION: POSTSURGICAL CHANGES OF CERVICAL FUSION FROM C2-C7 DESCRIBED ABOVE. HARDWARE APPEARS INTACT. RIGHT C3 SCREW SURROUNDING LUCENCY MAY BE EARLY SIGNS OF LOOSENING. ATTENTION ON FOLLOW-UP FILMS IS RECOMM ENDED. RIGHT THYROID GLAND NODULE. ASYMMETRIC SOFT TISSUE ALONG THE LEFT VOCAL CORD OF UNCERTAIN ETIOLOGY. FINDINGS MAY BE RELATED TO PH ASE OF RESPIRATION, UNDERLYING MASS IS NOT EXCLUDED. FURTHER EVALUATION WITH ENT CONSULTATION AND DIR ECT VISUALIZATION IS RECOMMENDED.
== END | disposition home or self-care (01) ==
LOC: RADCTMAIN 07:36
PROVIDERS: ATTEND Neurological Surgery
DX: Z98.1 Arthrodesis status (principal); Z01.812 Encounter for preprocedural laboratory examination
CPT/HCPCS: 82565; 84520; 72100; 72126; 36415; Q9967

== ENCOUNTER → 2019-04-14 | Outpatient (CLI) | payer MEDICARE ==
--- NOTE | 2019-04-14 16:10 | US ---
EXAMINATION TYPE: US thyroid st tissue head/neck DATE OF EXAM: 04/14/2019 COMPARISON: CT CLINICAL HISTORY: E04.1 THYROID NODULE. GLAND SIZE: Right Lobe: 4.8 x 1.7 x 2.1 cm Overall Parenchyma: heterogenous Left Lobe: 3.5 x 1.4 x 1.4 cm Overall Parenchyma: homogeneous Isthmus Thickness: 0.6 cm NODULES RIGHT: # of nodules measured on right: 2 1. 0.4 X 0.3 x 0.3 cm hypoechoic mixed nodule at the lower pole with well-defined margins noted in lobular area. This nodule is wider as is tall and shows no intranodular vascularity. 2. 1.0 X 1.0 x 0..5 cm hypoechoic mixed nodule at the lower medial pole/ right isthmus with well-de fined margins. This nodule is wider than tall and shows no intranodular vascularity. LEFT: # of nodules measured on left: 2 1. 0.7 X 0.6 x 0.7 cm hypoechoic mixed nodule at the upper pole with well-defined margins. This no dule is taller than wide and shows no intranodular vascularity. 2. 0.5 X 0.3 x 0.2 cm hypoechoic clustered mixed cystic nodule at the mid pole with well-defined mar gins; present with microcalcification. This nodule is wider than tall and shows no intranodular vasc ularity. ISTHMUS: # of nodules measured in the isthmus: see inferior right thyroid/medial right isthmus Bilateral neck scanned: no evidence of lymphadenopathy. IMPRESSION: 1. Subcentimeter thyroid nodules. 2. A borderline enlarged 1.0 cm nodules at the medial right isthmus.
== END | disposition home or self-care (01) ==
LOC: RADUSWWP 11:56
PROVIDERS: ATTEND Family Medicine
DX: E04.2 Nontoxic multinodular goiter (principal)
CPT/HCPCS: 76536

== ENCOUNTER → 2020-12-05 | Outpatient (CLI) | payer MEDICARE ==
--- NOTE | 2020-12-06 09:58 | MM ---
Reason for exam: screening (asymptomatic). Last mammogram was performed 1 year and 2 months ago. History: Patient is postmenopausal. Stereotactic core biopsy of the left breast, 2005. Benign stereotactic core biopsy of the left breast, April 24, 2004. Core biopsy of the left breast. Excisional biopsy of the left breast. Took antineoplastic for 4 years 5 months beginning at age 66. Physical Findings: A clinical breast exam by your physician is recommended on an annual basis and results should be correlated with mammographic findings. MG 3D Screening Mammo W/Cad Bilateral CC and MLO view(s) were taken. Prior study comparison: September 23, 2019, bilateral MG 3d screening mammo w/cad. September 03, 2018, right breast MG 3d work up w/cad RT. There are scattered fibroglandular densities. There are benign appearing vascular dystrophic calcifications in the left breast. Previous mammotome biopsy in the left breast. There is no discrete abnormality. ASSESSMENT: Benign, BI-RAD 2 RECOMMENDATION: Routine screening mammogram of both breasts in 1 year.
== END | disposition home or self-care (01) ==
LOC: RADMAMWWP 08:15
PROVIDERS: ATTEND Obstetrics & Gynecology
DX: Z12.31 Encounter for screening mammogram for malignant neoplasm of breast (principal)
CPT/HCPCS: 77063; 77067

== ENCOUNTER → 2021-12-27 | Outpatient (CLI) | payer MEDICARE ==
--- NOTE | 2021-12-28 14:32 | MM ---
Reason for exam: screening (asymptomatic). Last mammogram was performed 1 year and 1 month ago. History: Patient is postmenopausal. Stereotactic core biopsy of the left breast, 2005. Benign stereotactic core biopsy of the left breast, April 24, 2004. Core biopsy of the left breast. Excisional biopsy of the left breast. Took antineoplastic for 4 years 5 months beginning at age 66. Physical Findings: A clinical breast exam by your physician is recommended on an annual basis and results should be correlated with mammographic findings. MG 3D Screening Mammo W/Cad Bilateral CC and MLO view(s) were taken. Prior study comparison: December 05, 2020, bilateral MG 3d screening mammo w/cad. September 23, 2019, bilateral MG 3d screening mammo w/cad. There are scattered fibroglandular densities. Benign appearing bilateral calcifications. No significant changes when compared with prior studies. ASSESSMENT: Benign, BI-RAD 2 RECOMMENDATION: Routine screening mammogram of both breasts in 1 year.
== END | disposition home or self-care (01) ==
LOC: RADMAMWWP 09:07
PROVIDERS: ATTEND Obstetrics & Gynecology
DX: Z12.31 Encounter for screening mammogram for malignant neoplasm of breast (principal); Z78.0 Asymptomatic menopausal state
CPT/HCPCS: 77063; 77067

== ENCOUNTER → 2023-01-02 | Outpatient (CLI) | payer MEDICARE ==
--- NOTE | 2023-01-03 07:02 | MM ---
Reason for Exam: Screening (asymptomatic). Last screening mammogram was performed 12 month(s) ago. Patient History: Menarche at age 10. First Full-Term at age 20. Postmenopausal. 2005, Stereotactic Core Biopsy on the Left side. Core Biopsy on the Left side. Excisional Biopsy on the Left side. 04/24/2004, Benign Stereotactic Core Biopsy on the left side. Prior Study Comparison: 09/23/2019 Bilateral Screening Mammogram, [facility]. 12/05/2020 Bilateral Screening Mammogram, [facility]. 12/27/2021 Bilateral Screening Mammogram, [facility]. Tissue Density: There are scattered fibroglandular densities. Findings: Analyzed By CAD. There are benign-appearing vascular and linear calcifications bilaterally redemonstrated. There are large dystrophic calcifications redemonstrated scattered throughout the left breast. Mammotome biopsy clip in the left breast is redemonstrated. Benign-appearing right axillary lymph nodes are again seen. There is no suspicious group of microcalcifications or new suspicious mass in either breast. Overall Assessment: Benign, BI-RAD 2 Management: Screening Mammogram of both breasts in 1 year. . Patient should continue monthly self-breast exams. A clinical breast exam by your physician is recommended on an annual basis. This exam should not preclude additional follow-up of suspicious palpable abnormalities. Note on Meaghan scores and lifetime risk: 1. A Meaghan score greater than 3% is considered moderate risk. If this is the case, consider specialist referral to assess eligibility for a risk reducing agent. 2. If overall lifetime risk for the development of breast cancer is 20% or higher, the patient may qualify for future screening with alternating mammogram and breast MRI. Electronically signed and approved by: Sudarshan Garcia M.D.
== END | disposition home or self-care (01) ==
LOC: RADMAMWWP 09:12
PROVIDERS: ATTEND Obstetrics & Gynecology
DX: Z12.31 Encounter for screening mammogram for malignant neoplasm of breast (principal); Z78.0 Asymptomatic menopausal state
CPT/HCPCS: 77063; 77067